=== PATIENT | male | born 1955 | race Caucasian/White ===

== ENCOUNTER 2016-04-22 16:44 | Emergency (ER) | payer BC ==
[2016-04-22 17:50] LABS: Urine Bacteria Absent (Absent)
--- NOTE | 2016-04-22 18:34 | ED ---
Alayna Wilson Rebecca, scribed for Michael Fountain MD on 04/22/16 at 1657 . GI/ HPI - HPI Summary HPI Summary: Pt is a 61 y/o M who presents to ED c/o decreased urinary frequency. Last urinated this morning at 0800 (9 hours ago). Reports that 2 days ago he suddenly began experiencing dysuria and after discussing with his PCP, was prescribed Abx. Pt has taken 3 doses and sx are not improving. Has been drinking as little as possible due to dysuria. Additionally c/o diffuse abd pain and back pain, currently ranked 5/10. Denies rectal pain. No PMHx urinary retention. - History of Current Complaint Chief Complaint: EDUrogenitalProblems Time Seen by Provider: 04/22/16 16:55 Stated Complaint: UNABLE TO URINATE Hx Obtained From: Patient Onset/Duration: Started Days Ago - 2 days ago, Still Present Timing: Constant Severity: Moderate Current Severity: Moderate Pain Intensity: 5 Location of Pain: Diffuse - Abd and back Associated Signs and Symptoms: Positive: Back Pain, Dysuria, Abdominal Pain, Other: - Decreased urinary frequency; denies rectal pain - Allergy/Home Medications Allergies/Adverse Reactions: Allergies Allergy/AdvReac Type Severity Reaction Status Date / Time No Known Allergies Allergy Verified 04/22/16 16:49 PMH/Surg Hx/FS Hx/Imm Hx Endocrine/Hematology History: Denies: Hx Diabetes Cardiovascular History: Denies: Hx Congestive Heart Failure, Hx Hypertension History: Denies: Hx Renal Disease Infectious Disease History: No Infectious Disease History: Denies: Traveled Outside the [place] in Last 30 Days - Family History Known Family History: Positive: Other - Melanoma (mother) - Social History Alcohol Use: Weekly Substance Use Type: Reports: None Hx Tobacco Use: No Review of Systems Positive: Abdominal Pain - diffuse Positive: dysuria - 2 days, frequency - Decreased urinary frequency, other - Denies rectal pain Positive: Arthralgia - Back pain All Other Systems Reviewed And Are Negative: Yes Physical Exam Vital Signs On Initial Exam: Initial Vitals Temp Pulse Resp BP Pulse Ox 98.1 F 74 18 144/83 100 04/22/16 16:49 04/22/16 16:49 04/22/16 16:49 04/22/16 16:49 04/22/16 16:49 Diagnostics - Vital Signs Vital Signs Temp Pulse Resp BP Pulse Ox 04/22/16 16:49 98.1 F 74 18 144/83 100 - Laboratory Lab Results: Lab Results 04/22/16 Range/Units 17:30 Urine Color [place] Urine Appearance Clear Urine pH TNP Ur Specific [place] TNP Urine Protein TNP Urine Ketones TNP Urine Blood TNP Urine Nitrate TNP Urine Bilirubin TNP Urine Urobilinogen TNP Ur Leukocyte Esterase TNP Urine WBC (Auto) Trace(0-5/hpf) (Absent) Urine RBC (Auto) 1+(3-5/hpf) H (Absent) Urine Bacteria Absent (Absent) Urine Glucose TNP Urine Ascorbic Acid TNP Lab Statement: Any lab studies that have been ordered have been reviewed, and results considered in the medical decision making process. GIGU Course/Dx - Course Assessment/Plan: Pt is a 61 y/o M who presents to ED c/o decreased urinary frequency. Last urinated this morning at 0800 (9 hours ago). Reports that 2 days ago he suddenly began experiencing dysuria and after discussing with his PCP, was prescribed Abx. Pt has taken 3 doses and sx are not improving. Has been drinking as little as possible due to dysuria. Additionally c/o diffuse abd pain and back pain, currently ranked 5/10. Denies rectal pain. No PMHx urinary retention. In the ED course a bladder scan was performed. A desir catheter was placed and he expressed approximately 800 cc of urine. All symptoms have improved. He will continue taking Ciprofloxacin and he will be discharged home with f/u of Urology and his PCP. I discussed all the findings and test results with the patient. Patient was instructed to return to the emergency room immediately if any of the symptoms return or worsens. Plan of care was discussed with the patient and understands and agrees. All questions were answered at patient satisfaction. There were no further complaints or concerns. P/E: Lungs: CTA B/L. Good air exchange. No wheezing or crackles heard. CVS: S1 and S2 present. No murmurs appreciated. Patient is alert and oriented x 3. Patient is hemodynamically stable. Patient will be discharged home with follow up PMD in the next 2-3 days - Diagnoses Differential Diagnoses - Male: BPH, Urinary Tract Infection Provider Diagnoses: Urinary retention Discharge - Discharge Plan Condition: Stable Disposition: HOME Prescriptions: Tamsulosin CAP* [Flomax CAP*] 0.4 mg PO DAILY #15 cap Patient Education Materials: Urinary Retention in Men (ED) Referrals: Rob Frederick MD [Primary Care Provider] - 3 Days (Follow up with your primary care physician in 3 days. ) The documentation as recorded by the Alayna ballesteros Rebecca accurately reflects the service I personally performed and the decisions made by , Michael Fountain MD.
[2016-04-22 19:23] VITALS: BP 125/79
== END 2016-04-22 19:21 | disposition home or self-care (01) ==
LOC: ED 16:44
DX: R33.9 Retention of urine, unspecified (principal); R10.9 Unspecified abdominal pain; M54.9 Dorsalgia, unspecified; R30.0 Dysuria
CPT/HCPCS: 81003; 81015; 99283

== ENCOUNTER 2016-04-24 20:27 | Emergency (ER) | payer BC ==
[2016-04-24 21:06] LABS: Hematocrit 43 % (42-52); Hemoglobin 14.2 g/dl (14.0-18.0); Mean Corpuscular HGB Conc 33 g/dl (31-36); Mean Corpuscular Hemoglobin 29 pg (27-31); Mean Corpuscular Volume 88 fL (80-94); Mean Platelet Volume 8 um3 (7.4-10.4); Red Blood Count 4.87 10^6/ul (4.0-5.4); Red Cell Distribution Width 14 % (10.5-15); White Blood Count 7.6 10^3/ul (3.5-10.8)
[2016-04-24 21:20] LABS: Albumin 4.1 g/dL (3.2-5.2); BUN/Creatinine Ratio 12.3 (8-20); Calcium 9.7 mg/dL (8.6-10.3); EGFR African American 124.6 (>60); EGFR Non-African American 96.9 (>60); Globulin 3.4 g/dL (2-4); Potassium 3.3 mmol/L (3.5-5.0); Total Bilirubin 0.5 mg/dL (0.2-1.0); Total Protein 7.5 g/dL (6.4-8.9)
[2016-04-24 21:40] LABS: Urine Bacteria Absent (Absent); Urine Bilirubin Negative (Negative); Urine Glucose Negative (Negative); Urine Nitrite Negative (Negative)
[2016-04-24 22:40] VITALS: BP 127/71
--- NOTE | 2016-04-24 22:51 | ED ---
Alayna Wilson Rebecca, scribed for Rodríguez Lopez MD on 04/24/16 at 2055 . GI/ HPI - HPI Summary HPI Summary: Pt is a 61 y/o M who presents to ED c/o diffuse bodily chills/shivering that suddenly began 1 hour prior to arrival. Sx alleviated by spontaneous resolution , aggravated by nothing. Additionally c/o lumbar back pain, currently ranked 4/ 10 and characterized as dull. Denies fever, vomiting. Pt was evaluated by [facility] ED 2 days ago for urinary retention. Pt had a catheter put in place, which is still present and functioning. Notes that 2x since placement, his desir has leaked. Reports that since the desir was put in place "I feel like I gotta pee but not that bad." Pt discussed sx with PCP 3 days ago who prescribed him Cipro , which he continues to take 2x per day. PMHx prostatitis (decades ago - monitored by PCP). DoeS not regularly see a urologist. Prior record reviewed from 04/22/2016. Labs, urine essentially normal. UA WBCs were trace. - History of Current Complaint Chief Complaint: EDUrogenitalProblems Time Seen by Provider: 04/24/16 20:44 Stated Complaint: LOW BACK PAIN Hx Obtained From: Patient Onset/Duration: Started Hours Ago - 1 hour ago, Resolved Severity: Mild Current Severity: Mild Pain Intensity: 4 - Lumbar back pain Pain Characteristics: Dull Associated Signs and Symptoms: Positive: Chills, Other: - Catheter leaking. Negative: Vomiting, Fever - Allergy/Home Medications Allergies/Adverse Reactions: Allergies Allergy/AdvReac Type Severity Reaction Status Date / Time No Known Allergies Allergy Verified 04/24/16 20:36 PMH/Surg Hx/FS Hx/Imm Hx Endocrine/Hematology History: Denies: Hx Diabetes Cardiovascular History: Denies: Hx Congestive Heart Failure, Hx Hypertension History: Reports: Other Problems/Disorders - Hx Urinary retention Denies: Hx Renal Disease Infectious Disease History: No Infectious Disease History: Denies: Traveled Outside the [place] in Last 30 Days - Family History Known Family History: Positive: Other - Melanoma (mother) - Social History Alcohol Use: Weekly Substance Use Type: Reports: None Hx Tobacco Use: No Review of Systems Positive: Chills - resolved. Negative: Fever Negative: Vomiting Positive: other - Desir leaked 2x All Other Systems Reviewed And Are Negative: Yes Physical Exam - Summary Physical Exam Summary: General: Comfortable, pleasant, alert, currently no chills. HEENT: Moist mucosa, PERRL Neck: soft, supple, no adenopathy, no edema Heart: S1, S2, RRR, no murmurs, rubs, or gallops Lungs: Clear to auscultation, breathing comfortable, no wheezes or rales Abdominal: Soft, flat, no suprapubic tenderness. Urine in the leg bag does not appear cloudy or bloody. Extremities: No edema, no calf tenderness, no CVA tenderness Neuro: Alert and oriented x 3 Psych: Logical, coherent Triage Information Reviewed: Yes Vital Signs On Initial Exam: Initial Vitals Temp Pulse Resp BP Pulse Ox 99.8 F 73 18 147/69 100 04/24/16 20:30 04/24/16 20:30 04/24/16 20:30 04/24/16 20:30 04/24/16 20:30 Vital Signs Reviewed: Yes Procedures - Ultrasound Ultrasound: normal - Bedside SonoSite: Desir and balloon visualized in the bladder. Bladder is not markedly distended and its widest dimension measures 7.3 cm. Diagnostics - Vital Signs Vital Signs Temp Pulse Resp BP Pulse Ox 04/24/16 20:30 99.8 F 73 18 147/69 100 - Laboratory Lab Results: Lab Results 04/24/16 04/24/16 04/24/16 Range/Units 20:55 20:55 20:55 WBC 7.6 (3.5-10.8) 10^3/ul RBC 4.87 (4.0-5.4) 10^6/ul Hgb 14.2 (14.0-18.0) g/dl Hct 43 (42-52) % MCV 88 (80-94) fL MCH 29 (27-31) pg MCHC 33 (31-36) g/dl RDW 14 (10.5-15) % Plt Count 199 (150-450) 10^3/ul MPV 8 (7.4-10.4) um3 Neut % (Auto) 62.3 (38-83) % Lymph % (Auto) 25.3 (25-47) % [place] % (Auto) 9.9 H (1-9) % Eos % (Auto) 1.9 (0-6) % Baso % (Auto) 0.6 (0-2) % Absolute Neuts (auto) 4.7 (1.5-7.7) 10^3/ul Absolute Lymphs (auto) 1.9 (1.0-4.8) 10^3/ul Absolute Monos (auto) 0.8 (0-0.8) 10^3/ul Absolute Eos (auto) 0.1 (0-0.6) 10^3/ul Absolute Basos (auto) 0 (0-0.2) 10^3/ul Absolute Nucleated RBC 0.01 10^3/ul Nucleated RBC % 0.1 INR (Anticoag Therapy) 0.91 (0.89-1.11) APTT 28.6 (26.0-36.3) seconds Sodium 139 (133-145) mmol/L Potassium 3.3 L (3.5-5.0) mmol/L Chloride 104 (101-111) mmol/L Carbon Dioxide 26 (22-32) mmol/L Anion Gap 9 (2-11) mmol/L BUN 10 (6-24) mg/dL Creatinine 0.81 (0.67-1.17) mg/dL Est GFR ( Amer) 124.6 (>60) Est GFR (Non-Af Amer) 96.9 (>60) BUN/Creatinine Ratio 12.3 (8-20) Glucose 95 (70-100) mg/dL Calcium 9.7 (8.6-10.3) mg/dL Total Bilirubin 0.50 (0.2-1.0) mg/dL AST 25 (13-39) U/L ALT 29 (7-52) U/L Alkaline Phosphatase 36 (34-104) U/L Total Protein 7.5 (6.4-8.9) g/dL Albumin 4.1 (3.2-5.2) g/dL Globulin 3.4 (2-4) g/dL Albumin/Globulin Ratio 1.2 (1-3) Urine Color Urine Appearance Urine pH (5-9) Ur Specific [place] (1.010-1.030) Urine Protein (Negative) Urine Ketones (Negative) Urine Blood (Negative) Urine Nitrate (Negative) Urine Bilirubin (Negative) Urine Urobilinogen (Negative) Ur Leukocyte Esterase (Negative) Urine WBC (Auto) (Absent) Urine RBC (Auto) (Absent) Ur Squamous Epith Cells (Absent) Urine Bacteria (Absent) Urine Glucose (Negative) 04/24/16 Range/Units 21:00 WBC (3.5-10.8) 10^3/ul RBC (4.0-5.4) 10^6/ul Hgb (14.0-18.0) g/dl Hct (42-52) % MCV (80-94) fL MCH (27-31) pg MCHC (31-36) g/dl RDW (10.5-15) % Plt Count (150-450) 10^3/ul MPV (7.4-10.4) um3 Neut % (Auto) (38-83) % Lymph % (Auto) (25-47) % [place] % (Auto) (1-9) % Eos % (Auto) (0-6) % Baso % (Auto) (0-2) % Absolute Neuts (auto) (1.5-7.7) 10^3/ul Absolute Lymphs (auto) (1.0-4.8) 10^3/ul Absolute Monos (auto) (0-0.8) 10^3/ul Absolute Eos (auto) (0-0.6) 10^3/ul Absolute Basos (auto) (0-0.2) 10^3/ul Absolute Nucleated RBC 10^3/ul Nucleated RBC % INR (Anticoag Therapy) (0.89-1.11) APTT (26.0-36.3) seconds Sodium (133-145) mmol/L Potassium (3.5-5.0) mmol/L Chloride (101-111) mmol/L Carbon Dioxide (22-32) mmol/L Anion Gap (2-11) mmol/L BUN (6-24) mg/dL Creatinine (0.67-1.17) mg/dL Est GFR ( Amer) (>60) Est GFR (Non-Af Amer) (>60) BUN/Creatinine Ratio (8-20) Glucose (70-100) mg/dL Calcium (8.6-10.3) mg/dL Total Bilirubin (0.2-1.0) mg/dL AST (13-39) U/L ALT (7-52) U/L Alkaline Phosphatase (34-104) U/L Total Protein (6.4-8.9) g/dL Albumin (3.2-5.2) g/dL Globulin (2-4) g/dL Albumin/Globulin Ratio (1-3) Urine Color [place] Urine Appearance Cloudy Urine pH 6.0 (5-9) Ur Specific [place] 1.018 (1.010-1.030) Urine Protein 1+(30 mg/dl) H (Negative) Urine Ketones Negative (Negative) Urine Blood 3+ H (Negative) Urine Nitrate Negative (Negative) Urine Bilirubin Negative (Negative) Urine Urobilinogen Negative (Negative) Ur Leukocyte Esterase Negative (Negative) Urine WBC (Auto) 1+(6-10/hpf) H (Absent) Urine RBC (Auto) 3+(>10/hpf) H (Absent) Ur Squamous Epith Cells Present H (Absent) Urine Bacteria Absent (Absent) Urine Glucose Negative (Negative) Result Diagrams: 04/24/16 20:55 04/24/16 20:55 Lab Statement: Any lab studies that have been ordered have been reviewed, and results considered in the medical decision making process. GIGU Course/Dx - Course Assessment/Plan: He had chills, but no fever here. No tachycardia and no elevated WBC. No real objective evidence to support sepsis. He is going to continue to take Cipro. His UA showed slightly increased WBCs. After changing his desir, he seems to have improved. He was c/o leakage around the desir, which was odd. Immediately upon placing new desir he had 300 cc of urine out. Otherwise continue as planned to follow up with urology and should return should there be any fever or shaking chills. - Diagnoses Differential Diagnoses - Male: Hemorrhoids Provider Diagnoses: Chills (without fever), Complication, blocked Desir catheter Discharge - Discharge Plan Condition: Good Disposition: HOME Patient Education Materials: Urinary Retention in Men (ED) Referrals: Rob Frederick MD [Primary Care Provider] - Additional Instructions: Follow up with urology as already planned. The documentation as recorded by the Alayna ballesteros Rebecca accurately reflects the service I personally performed and the decisions made by , Rodríguez Lopez MD.
== END 2016-04-24 22:40 | disposition home or self-care (01) ==
LOC: ED 20:27
DX: T83.098A Other mechanical complication of other urinary catheter, initial encounter (principal); Y84.6 Urinary catheterization as the cause of abnormal reaction of the patient, or of later complication, without mention of misadventure at the time of the procedure; Y92.9 Unspecified place or not applicable; R68.83 Chills (without fever); R33.9 Retention of urine, unspecified
CPT/HCPCS: 36415; 80053; 81003; 81015; 85025; 85610; 85730; 87040; 99282

== ENCOUNTER 2016-04-25 20:06 | Inpatient (IN) | payer BC ==
[2016-04-25 22:08] LABS: Urine Bacteria Absent (Absent); Urine Bilirubin Negative (Negative); Urine Glucose Negative (Negative); Urine Nitrite Positive (Negative)
[2016-04-25] MEDS ORDERED: cefTRIAXone(*) 2 GM in NS 0.9% 100 ML* 100 ML IVPB ONE (22:19)
[2016-04-25] MEDS ORDERED: NS 0.9% 1000 ML* 1,000 ML IV ONE (22:20)
--- NOTE | 2016-04-25 22:23 | HP ---
H&P (Free Text) History and Physical: PCP: Sunny Frederick MD Date/Time of Evaluation: 04/25/2016 7245 CC: confusion, syncope HPI: Mr Nunez is a 61YO male HX BPH who began developing stinging with urination last Saturday prompting him to call his PCP who prescribed ciprofloxacin as he has a HX of prostatitis. The stinging worsened Saturday and developed into urinary retention on Saturday prompting an evaluation in [facility] ED where a desir was placed, follow up outpatient with urology arranged, and tamsulosin prescribed. After his first dose of tamsulosin Saturday, he was on the toilet defecating when without pro- or post-dromal symtoms he syncopized and was advised by his PCP to D/C the tamsulosin. Saturday he had issues urinating around the catheter and had developed F/C and rigors for which he returned to [facility] ED and was evaluated and released. Today his daughter noticed he was not making sense and his became concerned about sepsis prompting this 3rd ED visit. Given progressive infectious symptoms and a worsening UA despite adequate ABX, will admit for failed outpatient management and monitoring or UTI. 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 ; engineer design and construction, lives with his ; full code status FamHx: sister: passed of ovarian CA, father: basal cell skin CA, mother: melanoma ROS: as above, otherwise reviewed and all were negative Constitutional: NAD, normally developed, well-nourished white male vitals: Vital Signs Temp 36.9 C 04/25/16 20:09 Pulse 91 04/25/16 20:09 Resp 22 04/25/16 20:09 BP 137/66 04/25/16 20:09 Pulse Ox 100 04/25/16 20:09 Intake & Output 04/24/16 04/25/16 04/25/16 23:59 11:59 23:59 Weight 175 lb HEENM: atraumatic; sclera/conjunctiva: non-icteric/clear; hearing: intact; oropharynx: clear, mucosa moist Neck: soft tissue: non-tender; thyroid: normal Pulmonary: clear to auscultation bilaterally, good aeration, no accessory muscle use CV: RR/RR, normal S1S2, no carotid bruit, no jugular venous distention, 2+ B DP/ PT, no edema Abdominal: soft, non-distended, non-tender, no rebound/guarding/rigidity, normoactive bowel sounds, no hepatosplenomegaly or masses, no costovertebral angle tenderness Musculoskeletal: general: grossly intact; gait: stable Integumental: normal appearance and texture Psychiatric orientation: AA&O to PPS affect: calm mood: cooperative eye contact: good content: mostly reliable, but has difficulty with details and order of events memory: foggy to recent events responses: timely insight: fair to good Testing: Lab Results 04/25/16 04/25/16 Range/Units 20:45 22:20 WBC 6.4 (3.5-10.8) 10^3/ul RBC 4.98 (4.0-5.4) 10^6/ul Hgb 14.5 (14.0-18.0) g/dl Hct 43 (42-52) % MCV 86 (80-94) fL MCH 29 (27-31) pg MCHC 34 (31-36) g/dl RDW 13 (10.5-15) % Plt Count 172 (150-450) 10^3/ul MPV 8 (7.4-10.4) um3 Neut % (Auto) 78.0 (38-83) % Lymph % (Auto) 9.4 L (25-47) % [place] % (Auto) 11.5 H (1-9) % Eos % (Auto) 0.4 (0-6) % Baso % (Auto) 0.7 (0-2) % Absolute Neuts (auto) 5.0 (1.5-7.7) 10^3/ul Absolute Lymphs (auto) 0.6 L (1.0-4.8) 10^3/ul Absolute Monos (auto) 0.7 (0-0.8) 10^3/ul Absolute Eos (auto) 0 (0-0.6) 10^3/ul Absolute Basos (auto) 0 (0-0.2) 10^3/ul Absolute Nucleated RBC 0 10^3/ul Nucleated RBC % 0 Urine Color [place] Urine Appearance Clear Urine pH 6.0 (5-9) Ur Specific [place] 1.020 (1.010-1.030) Urine Protein 2+(100 mg/dl) H (Negative) Urine Ketones Trace H (Negative) Urine Blood 3+ H (Negative) Urine Nitrate Positive H (Negative) Urine Bilirubin Negative (Negative) Urine Urobilinogen Positive H (Negative) Ur Leukocyte Esterase Negative (Negative) Urine WBC (Auto) 3+(>20/hpf) H (Absent) Urine RBC (Auto) 3+(>10/hpf) H (Absent) Urine Bacteria Absent (Absent) Urine Glucose Negative (Negative) CT abd/pel WO: haziness around urinary bladder ?cystitis, no urinary stone or obstruction Impression: 61M presenting with UTI failed oupatient management complicated by urinary retention DIAGNOSIS & PLAN Primary UTI w/ urinary retention & confusion : IV ceftriaxone : add terazosin PO HS : obtain CT abd/pel WO to r/o obstructing stone : IVFs : blood & urine CXs : supportive care syncope : uncertain etiology, suspect vaso-vagal : telemetry : check ECHO Admission Rational: CDU observation for initiation of IV ABX for catheter associated UTI w/ confusion & syncope DVTp: SCDs & heparin SQ Code Status: full HCP: , Nancy
[2016-04-25 22:48] LABS: Hematocrit 43 % (42-52); Hemoglobin 14.5 g/dl (14.0-18.0); Mean Corpuscular HGB Conc 34 g/dl (31-36); Mean Corpuscular Hemoglobin 29 pg (27-31); Mean Corpuscular Volume 86 fL (80-94); Mean Platelet Volume 8 um3 (7.4-10.4); Red Blood Count 4.98 10^6/ul (4.0-5.4); Red Cell Distribution Width 13 % (10.5-15); White Blood Count 6.4 10^3/ul (3.5-10.8)
[2016-04-25] MEDS ORDERED: traMADol TAB* 50 MG PO PRN (22:58)
[2016-04-25] MEDS ORDERED: Melatonin (NF) 3 MG TAB PO PRN (22:58)
[2016-04-25] MEDS ORDERED: Terazosin CAP* 5 MG PO SCH (23:00)
[2016-04-25 23:01] LABS: BUN/Creatinine Ratio 10.4 (8-20); Calcium 9.6 mg/dL (8.6-10.3); EGFR African American 102.4 (>60); EGFR Non-African American 79.6 (>60); Potassium 3.2 mmol/L (3.5-5.0)
[2016-04-25] MEDS: Acetaminophen TAB* 325 MG PO PRN (23:49)
[2016-04-26] MEDS: NS 0.9% 1000 ML* 1,000 ML IV SCH ×4 (01:15→17:16)
[2016-04-26] MEDS: Phenazopyridine TAB* 100 MG PO SCH ×4 (01:15→20:32)
[2016-04-26] MEDS: Omeprazole CAP* 20 MG PO SCH (05:28)
[2016-04-26] MEDS: Acetaminophen TAB* 325 MG PO PRN ×3 (05:29→22:31)
[2016-04-26 05:30] LABS: Hematocrit 39 % (42-52); Hemoglobin 12.8 g/dl (14.0-18.0); Mean Corpuscular HGB Conc 33 g/dl (31-36); Mean Corpuscular Hemoglobin 29 pg (27-31); Mean Corpuscular Volume 88 fL (80-94); Mean Platelet Volume 8 um3 (7.4-10.4); Red Blood Count 4.41 10^6/ul (4.0-5.4); Red Cell Distribution Width 13 % (10.5-15); White Blood Count 4.7 10^3/ul (3.5-10.8)
[2016-04-26 05:47] LABS: BUN/Creatinine Ratio 10.9 (8-20); Calcium 8.4 mg/dL (8.6-10.3); EGFR African American 96.6 (>60); EGFR Non-African American 75.1 (>60); Potassium 3.5 mmol/L (3.5-5.0)
--- NOTE | 2016-04-26 07:44 | RAD ---
INDICATION: Flank abdominal pain. COMPARISON: Comparison is made with a prior CT of the abdomen and pelvis from February 03, 2013. TECHNIQUE: A CT scan of the abdomen and pelvis was performed without intravenous or oral contrast. Contiguous axial sections were obtained from the lung bases through the symphysis pubis. Images were reconstructed in the coronal and sagittal planes. FINDINGS: There is mild dependent bilateral lower lobe subsegmental atelectasis. No pleural effusion is present. The liver and spleen are normal in size. There are 2 small hypodense lesions in the posterior segment of the right hepatic lobe. The larger measures 1.7 cm in size. These likely represent cysts. No calcified gallstones are seen. The pancreas appears to be within normal limits. The adrenal glands and kidneys are normal in size. No renal calculi or hydronephrosis is seen. There is a Mcclellan catheter within the urinary bladder. There is mild stranding and haziness around the urinary bladder in the adjacent fat suggesting the possibility of cystitis. The aorta is normal in caliber without significant calcific plaque. No significant enlarged retroperitoneal lymph nodes are seen. The stomach, small and large bowel appear nondistended. The appendix is not well visualized. There is a moderate to large amount retained stool. There is no evidence for diverticulitis or colitis. No free intraperitoneal air or fluid is seen. No significant focal osseous abnormality is seen. IMPRESSION: THERE IS MILD HAZINESS AND STRANDING AROUND THE URINARY BLADDER SUGGESTING THE POSSIBILITY OF CYSTITIS. RECOMMEND CLINICAL CORRELATION.
[2016-04-26] MEDS: Docusate CAP* 100 MG PO SCH ×2 (09:20→20:32)
[2016-04-26] MEDS ORDERED: Acetaminophen TAB* 325 MG PO ONE (09:41)
[2016-04-26] MEDS ORDERED: Acetaminophen TAB* 325 MG ONE (09:42)
[2016-04-26] MEDS ORDERED: Gentamicin ADULT (*) 40 MG/ML VIAL IVPB ONE (14:20)
[2016-04-26] MEDS ORDERED: Ibuprofen TAB* 600 MG PO ONE (15:30)
[2016-04-26] MEDS ORDERED: Gentamicin ADULT (*) 200 MG in NS 0.9% 100 ML* 100 ML IVPB ONE (16:00)
--- NOTE | 2016-04-26 16:19 | ECHO ---
Patient: EUGENIO STALLWORTH [facility] Rec#: [id number] : 1955 Date: 04/26/2016 Age: 61y Height: 180 cm / 70.9 in Weight: 79 kg / 174.1 lbs Sex: M BSA: 1.99 Room#: [facility] Admit Date#: 04/25/2016 Type: Inpatient Referring: Sage Leach MD Reading: Chet Denton MD Chief Vendor Quality: Agusto Nunez RDCS CC: Rob Frederick MD Transthoracic Echocardiogram Indication: SYNCOPE BP: 99/49 Rhythm: NSR Findings History: SYNCOPE Technical Comments: The study quality is good. Left Ventricle: The left ventricular chamber size is normal. Global left ventricular wall motion and contractility are within normal limits. There is normal left ventricular systolic function. The estimated ejection fraction is 60-65%. The left ventricular diastolic filling pattern is consistent with pseudonormalization. Left Atrium: The left atrial chamber size is normal. Right Ventricle: The right ventricular cavity size is normal. The right ventricular global systolic function is normal. Right Atrium: The right atrial cavity size is normal. Aortic Valve: The aortic valve is trileaflet. There is no evidence of aortic regurgitation. There is no evidence of aortic stenosis. Mitral Valve: The mitral valve leaflets appear normal. There is a trace of mitral regurgitation. There is no evidence of mitral stenosis. Tricuspid Valve: There is mild to moderate tricuspid regurgitation. The right ventricular systolic pressure is estimated at 40 mmHg. There is evidence of pulmonary hypertension. Pulmonic Valve: The pulmonic valve appears normal. There is no evidence of pulmonic regurgitation. There is no pulmonic stenosis. Pericardium: There is no pericardial effusion. Aorta: There is no dilatation of the ascending aorta. The aortic arch is not well visualized. There is no dilation of the aortic root. Pulmonary Artery: The main pulmonary artery is not well visualized. Venous: The inferior vena cava is dilated. There is a greater than 50% respiratory change in the inferior vena cava dimension. Summary: There was not any prior study for comparison. Conclusions The left ventricular chamber size is normal. There is normal left ventricular systolic function. The estimated ejection fraction is 60-65%. There is a trace of mitral regurgitation. There is mild to moderate tricuspid regurgitation. Measurements Name Value Normal Range RVIDd (AP) 2D 2.6 cm (0.9 - 2.6) RVDdMajor (2D) 3.3 cm (2.2 - 4.4) RAd ISD 4CH 3.7 cm (3.4 - 4.9) RA (A4C)W 4.9 cm (2.9 - 4.6) IVSd (2D) 0.8 cm (0.6 - 1) LVPWd (2D) 0.8 cm (0.6 - 1) LVIDd (2D) 5.1 cm (3.6 - 5.4) LVIDs (2D) 3.5 cm - LV FS (2D) 32 % (25 - 45) Aortic Annulus 3.1 cm (1.4 - 2.6) Ao root diameter (2D) 1.9 cm (2.1 - 3.5) Ascending Ao 3.1 cm (2.1 - 3.4) LA dimension (AP) 2D 3.1 cm (2.3 - 3.8) LAd ISD 4CH 4.4 cm (2.9 - 5.3) LA ISD 4CH W 5.3 cm (2.5 - 4.5) Name Value Normal Range LA ESV SP 4CH (A/L) 75 ml - LA ESV SP 2CH (A/L) 54 ml - LA ESV BP (A/L) 68 ml - LA ESV BP (A/L) index 34.17 ml/m2 - LA ESV SP 4CH (MOD) 65 ml - LA ESV SP 2CH (MOD) 52 ml - Name Value Normal Range MV E-wave Vmax 0.94 m/sec - MV deceleration time 174 msec - MV A-wave Vmax 0.59 m/sec - MV E:A ratio 157 ratio - LV septal e' Vmax 0.11 m/sec - LV lateral e' Vmax 0.1 m/sec - LV E:e' septal ratio 8.5 ratio - LV E:e' lateral ratio 9.4 ratio - Name Value Normal Range LVOT diameter 1.8 cm - LVOT Vmax 1.3 m/sec - Name Value Normal Range TR Vmax 3 m/sec - TR peak gradient 37 mmHg - RAP 3 mmHg - RVSP 40 mmHg - IVC diameter 2.4 cm - Name Value Normal Range PV Vmax 1.1 m/sec -
--- NOTE | 2016-04-26 17:09 | PN ---
Subjective Date of Service: 04/26/16 Interval History: Desir in place. Drains only if he is lying on his left. Denies any SOB, cough, CP, N/V, GI symptoms. Objective Active Medications: Acetaminophen (Tylenol Tab*) 650 mg PO Q6H PRN PRN Reason: FEVER/PAIN Last Admin: 04/26/16 14:01 Dose: 650 mg Docusate Sodium (Colace Cap*) 200 mg PO BID [facility] Last Admin: 04/26/16 09:20 Dose: 200 mg Ceftriaxone Sodium 1,000 mg/ (Sodium Chloride) 50 mls @ 200 mls/hr IVPB Q24H [facility] Sodium Chloride (Ns 0.9% 1000 Ml*) 1,000 mls @ 175 mls/hr IV PER RATE [facility] Stop: 04/27/16 19:58 Last Admin: 04/26/16 14:42 Dose: 175 mls/hr Melatonin (Melatonin (Nf)) 3 mg PO BEDTIME PRN; Protocol PRN Reason: Sleep Omeprazole (Prilosec Cap*) 20 mg PO DAILY@0600 [facility] Last Admin: 04/26/16 05:28 Dose: 20 mg Ondansetron HCl (Zofran Inj*) 4 mg IV Q6H PRN PRN Reason: NAUSEA Phenazopyridine HCl (Pyridium Tab*) 200 mg PO TID [facility] Last Admin: 04/26/16 13:44 Dose: 200 mg Tramadol HCl (Ultram*) 50 mg PO Q6H PRN PRN Reason: PAIN Last Admin: 04/26/16 05:28 Dose: 50 mg Vital Signs 04/25/16 04/26/16 04/26/16 23:30 01:13 01:39 Temperature 102.3 F 99.3 F 99.3 F Pulse Rate 74 73 73 Respiratory 18 16 16 Rate Blood Pressure 118/61 122/65 122/65 (mmHg) O2 Sat by Pulse 97 99 99 Oximetry 04/26/16 04/26/16 04/26/16 04:03 05:28 07:25 Temperature 100.1 F 100.8 F Pulse Rate 90 91 Respiratory 16 16 18 Rate Blood Pressure 102/55 99/49 (mmHg) O2 Sat by Pulse 97 94 Oximetry 04/26/16 04/26/16 04/26/16 07:28 08:00 09:48 Temperature 102.0 F Pulse Rate 80 Respiratory 16 Rate Blood Pressure 106/62 (mmHg) O2 Sat by Pulse Oximetry 04/26/16 04/26/16 04/26/16 09:50 11:11 11:12 Temperature 102.2 F 101.5 F 102.4 F Pulse Rate 73 Respiratory 18 Rate Blood Pressure 102/40 (mmHg) O2 Sat by Pulse 94 Oximetry 04/26/16 04/26/16 04/26/16 11:22 13:55 14:05 Temperature 103.9 F 103.9 F Pulse Rate 73 Respiratory 18 Rate Blood Pressure 95/56 (mmHg) O2 Sat by Pulse 93 Oximetry 04/26/16 15:10 Temperature 103.3 F Pulse Rate Respiratory Rate Blood Pressure (mmHg) O2 Sat by Pulse Oximetry Oxygen Devices in Use Now: None Appearance: NAD Eyes: No Scleral Icterus, PERRLA Ears/Nose/Mouth/Throat: NL Teeth, Lips, Gums, Clear Oropharnyx, Mucous Membranes Moist Neck: NL Appearance and Movements; NL JVP, Trachea Midline Respiratory: Symmetrical Chest Expansion and Respiratory Effort, Clear to Auscultation Cardiovascular: NL Sounds; No Murmurs; No JVD, RRR Abdominal: NL Sounds; No Tenderness; No Distention, No Hepatosplenomegaly, - - desir in place with scant mucous draining from aroun glans Extremities: No Edema Skin: No Rash or Ulcers Neurological: Alert and Oriented x 3 Result Diagrams: 04/26/16 04:58 04/26/16 04:58 Additional Lab and Data: Lab Results 04/25/16 04/25/16 04/25/16 Range/Units 20:45 22:20 22:20 WBC 6.4 (3.5-10.8) 10^3/ul RBC 4.98 (4.0-5.4) 10^6/ul Hgb 14.5 (14.0-18.0) g/dl Hct 43 (42-52) % MCV 86 (80-94) fL MCH 29 (27-31) pg MCHC 34 (31-36) g/dl RDW 13 (10.5-15) % Plt Count 172 (150-450) 10^3/ul MPV 8 (7.4-10.4) um3 Neut % (Auto) 78.0 (38-83) % Lymph % (Auto) 9.4 L (25-47) % [place] % (Auto) 11.5 H (1-9) % Eos % (Auto) 0.4 (0-6) % Baso % (Auto) 0.7 (0-2) % Absolute Neuts (auto) 5.0 (1.5-7.7) 10^3/ul Absolute Lymphs (auto) 0.6 L (1.0-4.8) 10^3/ul Absolute Monos (auto) 0.7 (0-0.8) 10^3/ul Absolute Eos (auto) 0 (0-0.6) 10^3/ul Absolute Basos (auto) 0 (0-0.2) 10^3/ul Absolute Nucleated RBC 0 10^3/ul Nucleated RBC % 0 Sodium 135 (133-145) mmol/L Potassium 3.2 L (3.5-5.0) mmol/L Chloride 100 L (101-111) mmol/L Carbon Dioxide 28 (22-32) mmol/L Anion Gap 7 (2-11) mmol/L BUN 10 (6-24) mg/dL Creatinine 0.96 (0.67-1.17) mg/dL Est GFR ( Amer) 102.4 (>60) Est GFR (Non-Af Amer) 79.6 (>60) BUN/Creatinine Ratio 10.4 (8-20) Glucose 99 (70-100) mg/dL Lactic Acid (0.5-2.0) mmol/L Calcium 9.6 (8.6-10.3) mg/dL Urine Color Mariah Urine Appearance Clear Urine pH 6.0 (5-9) Ur Specific [place] 1.020 (1.010-1.030) Urine Protein 2+(100 mg/dl) H (Negative) Urine Ketones Trace H (Negative) Urine Blood 3+ H (Negative) Urine Nitrate Positive H (Negative) Urine Bilirubin Negative (Negative) Urine Urobilinogen Positive H (Negative) Ur Leukocyte Esterase Negative (Negative) Urine WBC (Auto) 3+(>20/hpf) H (Absent) Urine RBC (Auto) 3+(>10/hpf) H (Absent) Urine Bacteria Absent (Absent) Urine Glucose Negative (Negative) 04/25/16 Range/Units 22:20 WBC (3.5-10.8) 10^3/ul RBC (4.0-5.4) 10^6/ul Hgb (14.0-18.0) g/dl Hct (42-52) % MCV (80-94) fL MCH (27-31) pg MCHC (31-36) g/dl RDW (10.5-15) % Plt Count (150-450) 10^3/ul MPV (7.4-10.4) um3 Neut % (Auto) (38-83) % Lymph % (Auto) (25-47) % [place] % (Auto) (1-9) % Eos % (Auto) (0-6) % Baso % (Auto) (0-2) % Absolute Neuts (auto) (1.5-7.7) 10^3/ul Absolute Lymphs (auto) (1.0-4.8) 10^3/ul Absolute Monos (auto) (0-0.8) 10^3/ul Absolute Eos (auto) (0-0.6) 10^3/ul Absolute Basos (auto) (0-0.2) 10^3/ul Absolute Nucleated RBC 10^3/ul Nucleated RBC % Sodium (133-145) mmol/L Potassium (3.5-5.0) mmol/L Chloride (101-111) mmol/L Carbon Dioxide (22-32) mmol/L Anion Gap (2-11) mmol/L BUN (6-24) mg/dL Creatinine (0.67-1.17) mg/dL Est GFR ( Amer) (>60) Est GFR (Non-Af Amer) (>60) BUN/Creatinine Ratio (8-20) Glucose (70-100) mg/dL Lactic Acid 1.3 (0.5-2.0) mmol/L Calcium (8.6-10.3) mg/dL Urine Color Urine Appearance Urine pH (5-9) Ur Specific [place] (1.010-1.030) Urine Protein (Negative) Urine Ketones (Negative) Urine Blood (Negative) Urine Nitrate (Negative) Urine Bilirubin (Negative) Urine Urobilinogen (Negative) Ur Leukocyte Esterase (Negative) Urine WBC (Auto) (Absent) Urine RBC (Auto) (Absent) Urine Bacteria (Absent) Urine Glucose (Negative) Assess/Plan/Problems-Billing Assessment: 61 yo M h/o past syncopal events who developed dysurea later complicated by urinary retention s/p desir insertion then drainage from around desir with desir replacement (and upsizing per patient) now presenting to [facility] [place] with syncope found with high fevers. - Patient Problems (1) Sepsis Comment: Sepsis with urine as suspected source has h/o prostatitis. May need longer duration of abx therapy on discharge. c/w CTX. Bolus gentamycin now. Decison whether to continue tomorrow depending on fever curve as well as culture results. c/w NS 175cc/hr x 2 additional liters. (2) Hyperpyrexia Comment: Tmax 103.9 rectal Improved with application of icebags to body, tylenol, and 1 x dose motrin In setting of sepsis abx as above (3) DVT prophylaxis Comment: enoxaparin
[2016-04-26] MEDS: Enoxaparin(*) 40 MG/0.4 ML SYR SUBCUT SCH (17:55)
--- NOTE | 2016-04-26 20:11 | CONS ---
UROLOGY CONSULTATION: DATE OF CONSULT: 04/26/16 REQUESTING PHYSICIAN: Dr. Oni Edwards. DIAGNOSES: 1. Prostatitis. 2. History of urinary retention. HISTORY OF PRESENT ILLNESS: Bismark Nunez is a 61-year-old gentleman with a longstanding history of prostate enlargement, who was admitted with fever and urinary retention. He has had difficulty urinating off and on for several years and had been on Flomax at one point, but had discontinued it secondary to retrograde ejaculation. He often has to sit down to urinate, and had called his primary care doctor, Dr. Frederick, last week with complaints of dysuria. He was started on Cipro 500 mg which he took for 5 days. In spite of starting the Cipro, he had progressively worsening urinary symptoms and had a Mcclellan catheter placed in the emergency room on April 22. He has since then made several trips to the emergency room because of issues regarding drainage through the Mcclellan catheter and possible bladder spasms. The Mcclellan catheter was then replaced for a bigger Mcclellan catheter at the next trip and around that time, he was noted not to be draining his bladder adequately and it is possible that the first Mcclellan catheter was partially obstructed. PAST MEDICAL HISTORY: Unremarkable other than the above-described prostate enlargement. He is in excellent health. There is no history of diabetes mellitus or any other major systemic illness. MEDICATIONS ON ADMISSION: None. ALLERGIES: No known drug allergies. PHYSICAL EXAM: Reveals a pleasant middle-aged gentleman, who is currently comfortable. He did spike a temperature earlier today with a T-max of 103.9, pulse of 73, and blood pressure of 95/56. On examination, abdomen is soft, the bladder does not appear distended. There is no flank tenderness. Testicles are descended bilaterally and are normal. Phallus is circumcised. A Mcclellan catheter is in place draining clear urine tinged with phenazopyridine (Pyridium) . There is some drainage noted at the meatus which I suspect is from the urethral gland. DIAGNOSTIC STUDIES/LAB DATA: Review of labs reveals a white count of 4.7, hemoglobin and hematocrit of 12.8 and 39, and a platelet count of 156. BUN and creatinine are 11 and 1.01 respectively. Urinalysis showed a pH of 6.0, 2+ protein, 3+ blood, 3+ white blood cells, but absent bacteria. Cultures are currently pending. I reviewed the CT scan which reveals normal-appearing kidneys with no evidence of hydronephrosis. The Mcclellan catheter is in place in the bladder with some mild inflammatory changes noted around the bladder. IMPRESSION: A 61-year-old gentleman with long-standing history of prostate enlargement and currently admitted with prostatitis, possible sepsis. I did not do a prostate exam at the present time because of concern of inciting bacteremia and will do that as an outpatient in my office. I recommended that he be started on intravenous gentamicin until we have further information on culture and sensitivity and we will also start him on alfuzosin 10 mg daily to try and improve his bladder emptying once the Mcclellan catheter is removed, which I would not do for at least a week. I will reevaluate him in the morning and will then follow him up as an outpatient. CC: Dr. Rob Frederick; Dr. Tidwell * [id number]/CPS #: [id number] MTDD
[2016-04-26] MEDS: cefTRIAXone VIAL(*) 1,000 MG in NS 0.9% 50 ML* 50 ML IVPB SCH (22:46)
[2016-04-26] MEDS: Ibuprofen TAB* 600 MG PO PRN (23:48)
[2016-04-27] MEDS: Ibuprofen TAB* 600 MG PO PRN ×3 (05:42→19:59)
[2016-04-27] MEDS: Omeprazole CAP* 20 MG PO SCH (05:42)
[2016-04-27] MEDS ORDERED: Gentamicin ADULT per pharmacy 1 NOTE MISC FOLLOW UP PRN (08:10)
[2016-04-27] MEDS: Phenazopyridine TAB* 100 MG PO SCH ×3 (08:30→19:59)
[2016-04-27] MEDS: Docusate CAP* 100 MG PO SCH ×2 (08:30→19:59)
[2016-04-27] MEDS: CMCS: Alfuzosin ER (NF) 10 MG TAB.ER PO SCH (08:30)
[2016-04-27] MEDS: Acetaminophen TAB* 325 MG PO PRN ×3 (08:31→22:24)
[2016-04-27] MEDS: Gentamicin ADULT (*) 120 MG in NS 0.9% 100 ML* 100 ML IVPB SCH ×2 (09:45→20:41)
[2016-04-27] MEDS: Enoxaparin(*) 40 MG/0.4 ML SYR SUBCUT SCH (16:56)
--- NOTE | 2016-04-27 19:00 | PN ---
Subjective Date of Service: 04/27/16 Interval History: Still has discomfort around desir Has mild LOOMIS Has no N/V, abdominal pain. Notes back pain which is b/l lower back similar to chronic LBP No neck pain or stiffness Objective Active Medications: Acetaminophen (Tylenol Tab*) 650 mg PO Q6H PRN PRN Reason: FEVER/PAIN Last Admin: 04/27/16 15:06 Dose: 650 mg Alfuzosin HCl (Uroxatral (Nf)) 10 mg PO DAILY [facility] Last Admin: 04/27/16 08:30 Dose: 10 mg Docusate Sodium (Colace Cap*) 200 mg PO BID [facility] Last Admin: 04/27/16 08:30 Dose: 200 mg Enoxaparin Sodium (Lovenox(*)) 40 mg SUBCUT Q24H [facility] Last Admin: 04/27/16 16:56 Dose: 40 mg Ceftriaxone Sodium 1,000 mg/ (Sodium Chloride) 50 mls @ 200 mls/hr IVPB Q24H [facility] Last Admin: 04/26/16 22:46 Dose: 200 mls/hr Sodium Chloride (Ns 0.9% 1000 Ml*) 1,000 mls @ 175 mls/hr IV PER RATE [facility] Stop: 04/27/16 19:58 Last Admin: 04/26/16 17:16 Dose: 175 mls/hr Gentamicin Sulfate 120 mg/ (Sodium Chloride) 103 mls @ 206 mls/hr IVPB Q12H [facility] Last Admin: 04/27/16 09:45 Dose: 206 mls/hr Lactated Ringer's (Lactated Ringers 1000 Ml Bag*) 1,000 mls @ 200 mls/hr IV PER RATE [facility] Last Admin: 04/27/16 16:44 Dose: 200 mls/hr Ibuprofen (Motrin Tab*) 600 mg PO Q6H PRN PRN Reason: FEVER/PAIN Last Admin: 04/27/16 13:24 Dose: 600 mg Melatonin (Melatonin (Nf)) 3 mg PO BEDTIME PRN; Protocol PRN Reason: Sleep Omeprazole (Prilosec Cap*) 20 mg PO DAILY@0600 [facility] Last Admin: 04/27/16 05:42 Dose: 20 mg Ondansetron HCl (Zofran Inj*) 4 mg IV Q6H PRN PRN Reason: NAUSEA Pharmacy Consult (Gentamicin Adult Per Pharmacy) 1 note FOLLOW UP .GENT PER PHARMACY PRN PRN Reason: PER PROTOCOL Stop: 05/11/16 08:11 Pharmacy Profile Note (Gentamicin Trough Level) 1 note FOLLOW UP 0830 ONE Stop: 04/28/16 08:31 Pharmacy Profile Note (Gentamicin Peak Level*) 1 note FOLLOW UP 1000 ONE Stop: 04/28/16 10:01 Phenazopyridine HCl (Pyridium Tab*) 200 mg PO TID [facility] Last Admin: 04/27/16 13:25 Dose: 200 mg Tramadol HCl (Ultram*) 50 mg PO Q6H PRN PRN Reason: PAIN Last Admin: 04/26/16 05:28 Dose: 50 mg Vital Signs 04/26/16 04/26/16 04/26/16 19:10 19:46 22:25 Temperature 99.8 F 98.0 F 104.2 F Pulse Rate 74 Respiratory 17 Rate Blood Pressure 91/56 (mmHg) O2 Sat by Pulse 95 Oximetry 04/26/16 04/26/16 04/27/16 23:28 23:36 00:18 Temperature 104.0 F 103.7 F Pulse Rate 84 Respiratory 18 Rate Blood Pressure 113/41 (mmHg) O2 Sat by Pulse 43 Oximetry 04/27/16 04/27/16 04/27/16 01:34 03:23 04:07 Temperature 101.1 F 100.1 F 98.3 F Pulse Rate 62 Respiratory 16 Rate Blood Pressure 111/54 (mmHg) O2 Sat by Pulse 96 Oximetry 04/27/16 04/27/16 04/27/16 05:44 07:31 08:43 Temperature 101.1 F 99.1 F 100.4 F Pulse Rate 70 Respiratory 16 Rate Blood Pressure 108/53 (mmHg) O2 Sat by Pulse 95 Oximetry 04/27/16 04/27/16 04/27/16 11:46 14:39 15:05 Temperature 98.6 F 102.8 F 98.3 F Pulse Rate 66 120 Respiratory 16 20 Rate Blood Pressure 94/52 118/55 109/68 (mmHg) O2 Sat by Pulse 96 90 Oximetry 04/27/16 04/27/16 04/27/16 15:25 16:14 17:07 Temperature 100.7 F 103.6 F 102.7 F Pulse Rate 71 Respiratory 18 Rate Blood Pressure 122/53 (mmHg) O2 Sat by Pulse 98 Oximetry 04/27/16 18:27 Temperature 101.1 F Pulse Rate Respiratory Rate Blood Pressure (mmHg) O2 Sat by Pulse Oximetry Oxygen Devices in Use Now: None Appearance: well appearing, NAD Eyes: No Scleral Icterus, PERRLA Ears/Nose/Mouth/Throat: NL Teeth, Lips, Gums, Clear Oropharnyx, Mucous Membranes Moist Neck: NL Appearance and Movements; NL JVP, Trachea Midline Respiratory: Symmetrical Chest Expansion and Respiratory Effort, Clear to Auscultation Cardiovascular: NL Sounds; No Murmurs; No JVD, RRR Abdominal: NL Sounds; No Tenderness; No Distention Lymphatic: No Cervical Adenopathy Extremities: No Edema, No Clubbing, Cyanosis Skin: No Rash or Ulcers Neurological: Alert and Oriented x 3 Lines/Tubes/Other Access: Clean, Dry and Intact Desir - discharge from around desir Result Diagrams: 04/26/16 04:58 04/26/16 04:58 Additional Lab and Data: Lab Results 04/25/16 04/25/16 04/25/16 Range/Units 20:45 22:20 22:20 WBC 6.4 (3.5-10.8) 10^3/ul RBC 4.98 (4.0-5.4) 10^6/ul Hgb 14.5 (14.0-18.0) g/dl Hct 43 (42-52) % MCV 86 (80-94) fL MCH 29 (27-31) pg MCHC 34 (31-36) g/dl RDW 13 (10.5-15) % Plt Count 172 (150-450) 10^3/ul MPV 8 (7.4-10.4) um3 Neut % (Auto) 78.0 (38-83) % Lymph % (Auto) 9.4 L (25-47) % [place] % (Auto) 11.5 H (1-9) % Eos % (Auto) 0.4 (0-6) % Baso % (Auto) 0.7 (0-2) % Absolute Neuts (auto) 5.0 (1.5-7.7) 10^3/ul Absolute Lymphs (auto) 0.6 L (1.0-4.8) 10^3/ul Absolute Monos (auto) 0.7 (0-0.8) 10^3/ul Absolute Eos (auto) 0 (0-0.6) 10^3/ul Absolute Basos (auto) 0 (0-0.2) 10^3/ul Absolute Nucleated RBC 0 10^3/ul Nucleated RBC % 0 Sodium 135 (133-145) mmol/L Potassium 3.2 L (3.5-5.0) mmol/L Chloride 100 L (101-111) mmol/L Carbon Dioxide 28 (22-32) mmol/L Anion Gap 7 (2-11) mmol/L BUN 10 (6-24) mg/dL Creatinine 0.96 (0.67-1.17) mg/dL Est GFR ( Amer) 102.4 (>60) Est GFR (Non-Af Amer) 79.6 (>60) BUN/Creatinine Ratio 10.4 (8-20) Glucose 99 (70-100) mg/dL Lactic Acid (0.5-2.0) mmol/L Calcium 9.6 (8.6-10.3) mg/dL Urine Color Mariah Urine Appearance Clear Urine pH 6.0 (5-9) Ur Specific [place] 1.020 (1.010-1.030) Urine Protein 2+(100 mg/dl) H (Negative) Urine Ketones Trace H (Negative) Urine Blood 3+ H (Negative) Urine Nitrate Positive H (Negative) Urine Bilirubin Negative (Negative) Urine Urobilinogen Positive H (Negative) Ur Leukocyte Esterase Negative (Negative) Urine WBC (Auto) 3+(>20/hpf) H (Absent) Urine RBC (Auto) 3+(>10/hpf) H (Absent) Urine Bacteria Absent (Absent) Urine Glucose Negative (Negative) 04/25/16 Range/Units 22:20 WBC (3.5-10.8) 10^3/ul RBC (4.0-5.4) 10^6/ul Hgb (14.0-18.0) g/dl Hct (42-52) % MCV (80-94) fL MCH (27-31) pg MCHC (31-36) g/dl RDW (10.5-15) % Plt Count (150-450) 10^3/ul MPV (7.4-10.4) um3 Neut % (Auto) (38-83) % Lymph % (Auto) (25-47) % [place] % (Auto) (1-9) % Eos % (Auto) (0-6) % Baso % (Auto) (0-2) % Absolute Neuts (auto) (1.5-7.7) 10^3/ul Absolute Lymphs (auto) (1.0-4.8) 10^3/ul Absolute Monos (auto) (0-0.8) 10^3/ul Absolute Eos (auto) (0-0.6) 10^3/ul Absolute Basos (auto) (0-0.2) 10^3/ul Absolute Nucleated RBC 10^3/ul Nucleated RBC % Sodium (133-145) mmol/L Potassium (3.5-5.0) mmol/L Chloride (101-111) mmol/L Carbon Dioxide (22-32) mmol/L Anion Gap (2-11) mmol/L BUN (6-24) mg/dL Creatinine (0.67-1.17) mg/dL Est GFR ( Amer) (>60) Est GFR (Non-Af Amer) (>60) BUN/Creatinine Ratio (8-20) Glucose (70-100) mg/dL Lactic Acid 1.3 (0.5-2.0) mmol/L Calcium (8.6-10.3) mg/dL Urine Color Urine Appearance Urine pH (5-9) Ur Specific [place] (1.010-1.030) Urine Protein (Negative) Urine Ketones (Negative) Urine Blood (Negative) Urine Nitrate (Negative) Urine Bilirubin (Negative) Urine Urobilinogen (Negative) Ur Leukocyte Esterase (Negative) Urine WBC (Auto) (Absent) Urine RBC (Auto) (Absent) Urine Bacteria (Absent) Urine Glucose (Negative) Assess/Plan/Problems-Billing Assessment: 61 yo M h/o past syncopal events who developed dysurea later complicated by urinary retention s/p desir insertion then drainage from around desir with desir replacement (and upsizing per patient) now [place] [facility] found with high fevers. - Patient Problems (1) Sepsis Comment: Sepsis with urine as suspected source has h/o prostatitis. May need longer duration of abx therapy on discharge. c/w CTX and gentamycin. c/w NS 200cc/hr x 2 additional liters. If fevers continue into tomorrow plan on reimaging abdomen. Discussed with Dr. Tidwell. Dr. Lambert covering over the weekend (2) Hyperpyrexia Comment: Tmax 103.9 rectal Improved with application of icebags to body, tylenol, and motrin In setting of sepsis abx as above potential for reimaging (3) DVT prophylaxis Comment: enoxaparin
[2016-04-27] MEDS: cefTRIAXone VIAL(*) 1,000 MG in NS 0.9% 50 ML* 50 ML IVPB SCH (22:52)
[2016-04-28] MEDS: Ibuprofen TAB* 600 MG PO PRN ×4 (01:42→23:19)
[2016-04-28] MEDS: Omeprazole CAP* 20 MG PO SCH (05:30)
[2016-04-28] MEDS: Acetaminophen TAB* 325 MG PO PRN ×3 (05:30→20:20)
[2016-04-28] MEDS ORDERED: Gentamicin Trough Level 1 NOTE MISC FOLLOW UP ONE (08:30)
[2016-04-28 08:40] LABS: EGFR African American 132.1 (>60); EGFR Non-African American 102.7 (>60)
[2016-04-28] MEDS: CMCS: Alfuzosin ER (NF) 10 MG TAB.ER PO SCH (08:47)
[2016-04-28] MEDS: Gentamicin ADULT (*) 120 MG in NS 0.9% 100 ML* 100 ML IVPB SCH (08:47)
[2016-04-28] MEDS: Phenazopyridine TAB* 100 MG PO SCH ×3 (08:47→20:20)
[2016-04-28] MEDS: Docusate CAP* 100 MG PO SCH ×3 (09:11→20:20)
[2016-04-28] MEDS ORDERED: Gentamicin PEAK LEVEL* 1 NOTE MISC FOLLOW UP ONE (10:00)
[2016-04-28] MEDS ORDERED: Gentamicin ADULT (*) 160 MG in NS 0.9% 100 ML* 100 ML IVPB SCH (10:36)
--- NOTE | 2016-04-28 11:57 | PN ---
Subjective Date of Service: 04/28/16 Interval History: Patient had lower level fever overnight. Still feeling fuzzy, tired, but better overall. Urinary cath irritates tip of penis. Denies pain. Patient and nurse note subtle confusion. Family History: Unchanged from Admission Social History: Unchanged from Admission Past Medical History: Unchanged from Admission Objective Active Medications: Acetaminophen (Tylenol Tab*) 650 mg PO Q6H PRN PRN Reason: FEVER/PAIN Last Admin: 04/28/16 05:30 Dose: 650 mg Alfuzosin HCl (Uroxatral (Nf)) 10 mg PO DAILY [facility] Last Admin: 04/28/16 08:47 Dose: 10 mg Docusate Sodium (Colace Cap*) 200 mg PO BID [facility] Last Admin: 04/28/16 09:58 Dose: 200 mg Enoxaparin Sodium (Lovenox(*)) 40 mg SUBCUT Q24H [facility] Last Admin: 04/27/16 16:56 Dose: 40 mg Ceftriaxone Sodium 1,000 mg/ (Sodium Chloride) 50 mls @ 200 mls/hr IVPB Q24H [facility] Last Admin: 04/27/16 22:52 Dose: 200 mls/hr Lactated Ringer's (Lactated Ringers 1000 Ml Bag*) 1,000 mls @ 200 mls/hr IV PER RATE [facility] Stop: 04/28/16 23:59 Last Admin: 04/28/16 05:30 Dose: 200 mls/hr Gentamicin Sulfate 160 mg/ (Sodium Chloride) 104 mls @ 208 mls/hr IVPB 0900, 2100 [facility] Ibuprofen (Motrin Tab*) 600 mg PO Q6H PRN PRN Reason: FEVER/PAIN Last Admin: 04/28/16 08:47 Dose: 600 mg Melatonin (Melatonin (Nf)) 3 mg PO BEDTIME PRN; Protocol PRN Reason: Sleep Omeprazole (Prilosec Cap*) 20 mg PO DAILY@0600 [facility] Last Admin: 04/28/16 05:30 Dose: 20 mg Ondansetron HCl (Zofran Inj*) 4 mg IV Q6H PRN PRN Reason: NAUSEA Pharmacy Consult (Gentamicin Adult Per Pharmacy) 1 note FOLLOW UP .GENT PER PHARMACY PRN PRN Reason: PER PROTOCOL Stop: 05/11/16 08:11 Pharmacy Profile Note (Gentamicin Trough Level) 1 note FOLLOW UP 0830 ONE Stop: 04/30/16 08:31 Pharmacy Profile Note (Gentamicin Peak Level*) 1 note FOLLOW UP 1000 [facility] Phenazopyridine HCl (Pyridium Tab*) 200 mg PO TID [facility] Last Admin: 04/28/16 08:47 Dose: 200 mg Tramadol HCl (Ultram*) 50 mg PO Q6H PRN PRN Reason: PAIN Last Admin: 04/26/16 05:28 Dose: 50 mg Vital Signs 04/27/16 04/27/16 04/27/16 16:14 17:07 18:27 Temperature 39.8 C 39.3 C 38.4 C Pulse Rate Respiratory Rate Blood Pressure (mmHg) O2 Sat by Pulse Oximetry 04/27/16 04/28/16 04/28/16 23:35 01:41 03:44 Temperature 37.0 C 37.7 C 36.8 C Pulse Rate 66 63 Respiratory 16 16 Rate Blood Pressure 104/54 114/64 (mmHg) O2 Sat by Pulse 94 95 Oximetry 04/28/16 04/28/16 04/28/16 07:56 08:00 11:32 Temperature 36.9 C 38.1 C Pulse Rate 64 Respiratory 16 20 Rate Blood Pressure 102/56 (mmHg) O2 Sat by Pulse 96 Oximetry Oxygen Devices in Use Now: None Eyes: No Scleral Icterus Ears/Nose/Mouth/Throat: Clear Oropharnyx Neck: NL Appearance and Movements; NL JVP Respiratory: Clear to Auscultation, Clear to Percussion Cardiovascular: NL Sounds; No Murmurs; No JVD, RRR Abdominal: NL Sounds; No Tenderness; No Distention, No Hepatosplenomegaly Lymphatic: No Cervical Adenopathy Skin: No Rash or Ulcers Neurological: Alert and Oriented x 3 Lines/Tubes/Other Access: Clean, Dry and Intact Peripheral IV Result Diagrams: 04/26/16 04:58 04/28/16 08:19 Additional Lab and Data: Lab Results Laboratory Tests 04/26/16 04/28/16 04/28/16 04:58 08:18 08:19 WBC 4.7 Hgb 12.8 L Hct 39 L Plt Count 156 BUN 9 Creatinine 0.77 Gentamicin Peak Gentamicin Trough 0.6 04/28/16 09:13 WBC Hgb Hct Plt Count BUN Creatinine Gentamicin Peak 4.3 Gentamicin Trough Assess/Plan/Problems-Billing Assessment: 61 yo M h/o past syncopal events who developed dysuria later complicated by urinary retention here with sepsis due to prostatitis. - Patient Problems (1) Sepsis Current Visit: Yes Status: Acute Priority: High Comment: Sepsis with urine as suspected source. Urine culture negative (likely due to PO cipro outpatient) has h/o prostatitis. c/w ceftriazone and gentamycin. decrease IFV to NS at 125cc/hr (2) Hyperpyrexia Current Visit: Yes Status: Acute Priority: Medium Code(s): R50.9 - FEVER, UNSPECIFIED SNOMED Code(s): 606166297 Comment: Fever curve improving. Mild confusion not borne out on exam, concerning, will need close observation If fevers return, will CT abdomen, r/o abscess (3) DVT prophylaxis Current Visit: Yes Status: Acute Priority: Low Code(s): QTJ3235 - SNOMED Code(s): 574579451 Comment: on SC enoxaparin
[2016-04-28] MEDS: NS 0.9% 1000 ML* 1,000 ML IV SCH ×2 (12:12→20:48)
[2016-04-28] MEDS: Enoxaparin(*) 40 MG/0.4 ML SYR SUBCUT SCH (17:27)
[2016-04-28] MEDS: Gentamicin ADULT (*) 160 MG in NS 0.9% 100 ML* 100 ML IVPB SCH (20:48)
[2016-04-28] MEDS: Ondansetron INJ* 2 MG/ML VIAL IV PRN (21:34)
--- NOTE | 2016-04-28 22:02 | PN ---
Progress Note - Progress Note Note: Had discussion with Mr Nunez's sister, Dr Nunez, who as per previous report continues to express concern regarding the fact he has been on ABX for a total of 8 days, including the new ABX regimen for 3 days, but continues to mount fevers. I attempted to reassure her that thus far his CXs are negative, his labs and vitals are otherwise stable/normal, and that there is nothing acutely to change tonight. She did ask about an ID consult and was informed that we generally do not have ID available over the weekend and the earliest I would expect that was Saturday. She did not sound satisfied with my answers or reassurance, but stated she had no further questions. She did allude to the fact that Mr Nunez has had "other family members" treated here for sepsis that "did not inspector returned materials well". In fact, her son was here last year with a severe pneumonia which did not respond to therapy. Ultimately he was transferred to a higher level of care for ECMO, but was unable to be recovered and .
[2016-04-28] MEDS: cefTRIAXone VIAL(*) 1,000 MG in NS 0.9% 50 ML* 50 ML IVPB SCH (22:42)
[2016-04-29] MEDS: Acetaminophen TAB* 325 MG PO PRN ×3 (03:08→15:30)
[2016-04-29] MEDS: NS 0.9% 1000 ML* 1,000 ML IV SCH ×2 (05:42→15:29)
[2016-04-29] MEDS: Omeprazole CAP* 20 MG PO SCH (05:42)
[2016-04-29 06:08] LABS: Hematocrit 35 % (42-52); Hemoglobin 11.7 g/dl (14.0-18.0); Mean Corpuscular HGB Conc 34 g/dl (31-36); Mean Corpuscular Hemoglobin 29 pg (27-31); Mean Corpuscular Volume 86 fL (80-94); Mean Platelet Volume 8 um3 (7.4-10.4); Red Blood Count 4.01 10^6/ul (4.0-5.4); Red Cell Distribution Width 13 % (10.5-15); White Blood Count 4.5 10^3/ul (3.5-10.8)
[2016-04-29 06:09] LABS: Add Diff/Slide Review? Slide Review Added; Comments Flag Yes
[2016-04-29 06:22] LABS: BUN/Creatinine Ratio 11.7 (8-20); C Reactive Protein 171.08 mg/L (< 5.00); Calcium 8.1 mg/dL (8.6-10.3); EGFR African American 132.1 (>60); EGFR Non-African American 102.7 (>60); Potassium 3.6 mmol/L (3.5-5.0)
[2016-04-29] MEDS: Ondansetron INJ* 2 MG/ML VIAL IV PRN (07:21)
[2016-04-29] MEDS: Ibuprofen TAB* 600 MG PO PRN ×3 (07:21→20:58)
[2016-04-29] MEDS: Phenazopyridine TAB* 100 MG PO SCH ×3 (09:25→20:28)
[2016-04-29] MEDS: Gentamicin ADULT (*) 160 MG in NS 0.9% 100 ML* 100 ML IVPB SCH ×2 (09:25→21:50)
[2016-04-29] MEDS: Docusate CAP* 100 MG PO SCH ×2 (09:25→20:28)
[2016-04-29] MEDS: CMCS: Alfuzosin ER (NF) 10 MG TAB.ER PO SCH (09:26)
[2016-04-29] MEDS ORDERED: Iohexol 300* (CONTRAST) 10 ML SDV IV SCH (12:45)
--- NOTE | 2016-04-29 13:50 | RAD ---
CLINICAL HISTORY: Abdominal pain COMPARISON: CT abdomen pelvis dated April 25, 2016 TECHNIQUE: Contrast enhanced CT examination of the abdomen and pelvis from the lung bases through the initial tuberosities. The patient received 95 mL Omnipaque 300 intravenously prior to imaging.The patient received oral contrast as well prior to imaging. FINDINGS: VISUALIZED LUNG BASES: There has been interval appearance of a moderate right lung base pleural effusion. There are new densities in the right lower lobe abutting the new pleural effusion and separate. There is a tiny left-sided pleural effusion. ABDOMEN AND PELVIS: In the right lobe of liver there is a fluid density cyst measuring 1.8 cm in diameter unchanged from the previous CT examination. The liver is otherwise homogenous in attenuation and the surface is smooth. The spleen, pancreas and adrenal glands are grossly normal in appearance. There are at least 2 gallstones in the gallbladder lumen measuring 2.8 and 2.5 cm and greatest dimension. There are no definite inflammatory changes of the gallbladder. The kidneys are normal in appearance without focal mass, calcification or signs of hydronephrosis. Mcclellan catheter is seen in place. There is gas in the nondependent portion of the urinary bladder most likely a consequence of the Mcclellan catheter. The oral contrast has progressed as far as the splenic flexure of the colon. The small and large bowel are not distended. The patient's normal appendix is identified in the right lower quadrant with contrast the lumen (image 46 of 94 on the coronal plane images). There is no gross retroperitoneal or mesenteric lymphadenopathy. There is a small amount of free fluid in the pelvis as well as fluid tracking along the inferior margin of the liver and the right paracolic gutter. The prostate is mildly enlarged measuring 4 x 4.6 cm in the axial plane The abdominal aorta and iliac arteries are normal in course and diameter. Infiltration and subcutaneous gas overlying the left abdomen is most consistent with percutaneous injection sites. Degenerative changes include multilevel loss of intervertebral disc height involving the lower thoracic and lumbar spine.There are no sinister bone lesions. IMPRESSION: 1. There has been interval development of moderate right and small left pleural effusions as well as consolidation in the right lower lobe. In the presence of fever of unknown origin right lower lobe pneumonia is considered a diagnostic etiology. 2. Interval appearance of free fluid tracking along the right paracolic gutter and in the dependent portion of the pelvis. 3. Likely cholelithiasis without definite inflammatory changes surrounding the gallbladder or evidence of biliary obstruction. If clinically indicated this can be further characterized with ultrasound. 4. Additional chronic, degenerative and iatrogenic findings as described in the body of the report.
--- NOTE | 2016-04-29 14:08 | PN ---
Subjective Date of Service: 04/29/16 Interval History: Patient feels worse today. Feels weak all over, has no appetite. Reports mild abdo discomfort. Had some nausea, responded to IV Zofran. in room, concerned about untreated sepsis. Sister is ER doctor in [facility], wants a call about patient. Family History: Unchanged from Admission Social History: Unchanged from Admission Past Medical History: Unchanged from Admission Objective Active Medications: Acetaminophen (Tylenol Tab*) 650 mg PO Q6H PRN PRN Reason: FEVER/PAIN Last Admin: 04/29/16 09:26 Dose: 650 mg Alfuzosin HCl (Uroxatral (Nf)) 10 mg PO DAILY [facility] Last Admin: 04/29/16 09:26 Dose: 10 mg Docusate Sodium (Colace Cap*) 200 mg PO BID [facility] Last Admin: 04/29/16 09:25 Dose: 200 mg Enoxaparin Sodium (Lovenox(*)) 40 mg SUBCUT Q24H [facility] Last Admin: 04/28/16 17:27 Dose: 40 mg Ceftriaxone Sodium 1,000 mg/ (Sodium Chloride) 50 mls @ 200 mls/hr IVPB Q24H [facility] Last Admin: 04/28/16 22:42 Dose: 200 mls/hr Gentamicin Sulfate 160 mg/ (Sodium Chloride) 104 mls @ 208 mls/hr IVPB 0900, 2100 [facility] Last Admin: 04/29/16 09:25 Dose: 208 mls/hr Sodium Chloride (Ns 0.9% 1000 Ml*) 1,000 mls @ 125 mls/hr IV PER RATE [facility] Last Admin: 04/29/16 05:42 Dose: 125 mls/hr Ibuprofen (Motrin Tab*) 600 mg PO Q6H PRN PRN Reason: FEVER/PAIN Last Admin: 04/29/16 13:33 Dose: 600 mg Iohexol (Omnipaque 300* (Contrast)) 100 ml IV ONCE [facility] Stop: 05/01/16 23:59 Last Admin: 04/29/16 13:12 Dose: 100 ml Melatonin (Melatonin (Nf)) 3 mg PO BEDTIME PRN; Protocol PRN Reason: Sleep Omeprazole (Prilosec Cap*) 20 mg PO DAILY@0600 [facility] Last Admin: 04/29/16 05:42 Dose: 20 mg Ondansetron HCl (Zofran Inj*) 4 mg IV Q6H PRN PRN Reason: NAUSEA Last Admin: 04/29/16 07:21 Dose: 4 mg Pharmacy Consult (Gentamicin Adult Per Pharmacy) 1 note FOLLOW UP .GENT PER PHARMACY PRN PRN Reason: PER PROTOCOL Stop: 05/11/16 08:11 Pharmacy Profile Note (Gentamicin Trough Level) 1 note FOLLOW UP 0830 ONE Stop: 04/30/16 08:31 Pharmacy Profile Note (Gentamicin Peak Level*) 1 note FOLLOW UP 1000 ONE Stop: 04/30/16 10:01 Phenazopyridine HCl (Pyridium Tab*) 200 mg PO TID [facility] Last Admin: 04/29/16 13:33 Dose: Not Given Tramadol HCl (Ultram*) 50 mg PO Q6H PRN PRN Reason: PAIN Last Admin: 04/26/16 05:28 Dose: 50 mg Vital Signs 04/28/16 04/28/16 04/28/16 20:00 20:17 21:00 Temperature 39.6 C 39.0 C Pulse Rate Respiratory 20 Rate Blood Pressure (mmHg) O2 Sat by Pulse Oximetry 04/29/16 04/29/16 04/29/16 00:22 03:17 04:24 Temperature 36.8 C 37.7 C 37.4 C Pulse Rate 64 60 Respiratory 20 20 Rate Blood Pressure 112/68 119/65 (mmHg) O2 Sat by Pulse 90 94 Oximetry 04/29/16 04/29/16 04/29/16 07:32 07:34 07:43 Temperature 37.9 C 37.9 C Pulse Rate 58 Respiratory 20 16 Rate Blood Pressure 130/68 (mmHg) O2 Sat by Pulse 95 Oximetry 04/29/16 04/29/16 04/29/16 08:34 11:37 12:12 Temperature 38.3 C 37.4 C 37.6 C Pulse Rate 66 Respiratory 16 Rate Blood Pressure 116/64 (mmHg) O2 Sat by Pulse 92 Oximetry Oxygen Devices in Use Now: None Eyes: No Scleral Icterus Ears/Nose/Mouth/Throat: Clear Oropharnyx Neck: NL Appearance and Movements; NL JVP Respiratory: Symmetrical Chest Expansion and Respiratory Effort, Clear to Auscultation, Clear to Percussion Cardiovascular: NL Sounds; No Murmurs; No JVD, RRR Abdominal: No Hepatosplenomegaly, - - tender epigastric, negative tello's sign , no masses Lymphatic: No Cervical Adenopathy Skin: No Rash or Ulcers Neurological: Alert and Oriented x 3 Lines/Tubes/Other Access: Clean, Dry and Intact Peripheral IV Result Diagrams: 04/29/16 05:59 04/29/16 05:59 Additional Lab and Data: Lab Results Microbiology and Other Data: NGTD blood cultures, urine Assess/Plan/Problems-Billing Assessment: 61 yo M h/o past syncopal events who developed dysuria later complicated by urinary retention here with sepsis due to prostatitis. - Patient Problems (1) Sepsis Current Visit: Yes Status: Acute Priority: High Comment: Sepsis with urine as suspected source. Urine culture negative (likely due to PO cipro outpatient),has h/o prostatitis. Differential of high fevers on antibiotics includes fever related to neoplasm, rheumatic disease, abscess, or unusual bacteria not suppressed by ceftriax/gent Will re-culture if fever spikes. May need echo r/o endocarditis. Continue ceftriazone and gentamycin. Continue IFV NS at 125cc/hr (2) Hyperpyrexia Current Visit: Yes Status: Acute Priority: Medium Code(s): R50.9 - FEVER, UNSPECIFIED SNOMED Code(s): 850061613 Comment: Had CT abdomen today, results pending (3) DVT prophylaxis Current Visit: Yes Status: Acute Priority: Low Code(s): [id number] - SNOMED Code(s): 710305310 Comment: on SC enoxaparin
[2016-04-29] MEDS ORDERED: Pantoprazole IV* 40 MG IV SCH (15:00)
[2016-04-29 16:25] LABS: Albumin 2.9 g/dL (3.2-5.2); Direct Bilirubin 0.2 mg/dL (0.03-0.18); Globulin 2.9 g/dL (2-4); Indirect Bilirubin 0.4 mg/dL (0.3-1.0); Total Bilirubin 0.6 mg/dL (0.2-1.0); Total Protein 5.8 g/dL (6.4-8.9)
[2016-04-29] MEDS: NS 0.9% w/ 20 Meq KCL 1000 ML* 1,000 ML IV SCH (16:37)
--- NOTE | 2016-04-29 16:39 | RAD ---
HISTORY: Epigastric pain COMPARISONS: Same day CT of the abdomen and pelvis TECHNIQUE: Multiple transverse and longitudinal ultrasound images were obtained of the right upper quadrant. FINDINGS: LIVER: The liver is homogenous and echogenicity. Liver is enlarged measuring up to 23.8 cm in greatest cephalocaudal dimension. There is a small amount of free fluid along the inferior margin of the right lobe of the liver. Normal hepatic and portal venous blood flow is duplicated with color flow imaging. There is no gross intrahepatic biliary duct dilatation. GALLBLADDER AND EXTRAHEPATIC BILIARY DUCT: There are no echogenic shadowing stones in the gallbladder lumen. The gallbladder is mostly decompressed exhibiting septations. There is a small amount of pericholecystic fluid. The common bile duct measures a maximum diameter of 3 mm. PANCREAS: The portions of the pancreas not obscured by bowel gas are normal in appearance. RIGHT KIDNEY: The right kidney is normal in size, morphology and echogenicity. IMPRESSION: 1. MOSTLY DECOMPRESSED GALLBLADDER WITH FOLD AND SEPTATIONS AND A SMALL AMOUNT OF PERICHOLECYSTIC FLUID. THERE ARE NO ECHOGENIC STONES OR OTHER MATERIAL WITHIN THE GALLBLADDER LUMEN. THE APPEARANCE OF STONES ON THE CT EXAMINATION IS LIKELY ATTRIBUTED TO THE FOLDS AND SEPTATIONS AND THE SMALL AMOUNT OF PERICHOLECYSTIC FLUID. 2. HEPATOMEGALY WITH THE LIVER MEASURING NEARLY 24 CM IN GREATEST CEPHALOCAUDAL DIMENSION. 3. IN ADDITION TO PERICHOLECYSTIC FLUID THERE IS A SMALL AMOUNT OF FLUID ALONG THE INFERIOR MARGIN OF THE RIGHT LOBE OF THE LIVER.
--- NOTE | 2016-04-29 17:23 | PN ---
Progress Note - Progress Note Note: Addendum: CT shows ?cholelithiasis, small RT pleural effusion, fluid in pericolic gutter RT. Discussed with Dr. Allen, will have RUQ U/S. Does not feel effusion would be accessed by thoracentesis w/o U/S US RUQ shows pericholecytic fluid. Discussed case with Dr. Lambert, he is aware. Discussed w/ Dr. Rm, he will assess patient.
[2016-04-29] MEDS: metroNIDAZOLE IV 500 MG/100ML* 500 MG/100 ML BAG IVPB SCH (17:57)
[2016-04-29] MEDS: Enoxaparin(*) 40 MG/0.4 ML SYR SUBCUT SCH (17:57)
[2016-04-29] MEDS ORDERED: Levofloxacin 750 MG IVPREMIX(* 750 MG/150 ML BAG IVPB SCH (20:00)
[2016-04-30] MEDS: Acetaminophen TAB* 325 MG PO PRN (00:15)
[2016-04-30] MEDS: metroNIDAZOLE IV 500 MG/100ML* 500 MG/100 ML BAG IVPB SCH ×3 (02:06→17:59)
[2016-04-30] MEDS: Ibuprofen TAB* 600 MG PO PRN ×2 (03:54→18:37)
[2016-04-30] MEDS: NS 0.9% w/ 20 Meq KCL 1000 ML* 1,000 ML IV SCH (04:56)
[2016-04-30] MEDS ORDERED: Gentamicin Trough Level 1 NOTE MISC FOLLOW UP ONE (08:30)
[2016-04-30] MEDS: Phenazopyridine TAB* 100 MG PO SCH ×3 (09:20→19:31)
[2016-04-30] MEDS: Docusate CAP* 100 MG PO SCH (09:20)
[2016-04-30] MEDS: CMCS: Alfuzosin ER (NF) 10 MG TAB.ER PO SCH (09:20)
[2016-04-30] MEDS: Gentamicin ADULT (*) 160 MG in NS 0.9% 100 ML* 100 ML IVPB SCH (09:20)
[2016-04-30 09:27] LABS: Hematocrit 34 % (42-52); Hemoglobin 11.3 g/dl (14.0-18.0); Mean Corpuscular HGB Conc 34 g/dl (31-36); Mean Corpuscular Hemoglobin 29 pg (27-31); Mean Corpuscular Volume 87 fL (80-94); Mean Platelet Volume 8 um3 (7.4-10.4); Red Blood Count 3.89 10^6/ul (4.0-5.4); Red Cell Distribution Width 14 % (10.5-15); White Blood Count 5.7 10^3/ul (3.5-10.8)
[2016-04-30 09:41] LABS: Albumin 2.9 g/dL (3.2-5.2); C Reactive Protein 195.14 mg/L (< 5.00); Calcium 8.1 mg/dL (8.6-10.3); EGFR African American 140.5 (>60); EGFR Non-African American 109.2 (>60); Globulin 3.1 g/dL (2-4); Potassium 3.6 mmol/L (3.5-5.0); Total Bilirubin 0.8 mg/dL (0.2-1.0)
[2016-04-30] MEDS ORDERED: Docusate CAP* 100 MG PO PRN (09:53)
[2016-04-30] MEDS ORDERED: Gentamicin PEAK LEVEL* 1 NOTE MISC FOLLOW UP ONE (10:00)
--- NOTE | 2016-04-30 10:01 | PN ---
Subjective Date of Service: 04/30/16 Interval History: Patient c/o RUQ and epigastric pain x 2 days. Diminished appetite. No bowel c/ o. Occ nausea. Family History: Unchanged from Admission Social History: Unchanged from Admission Past Medical History: Unchanged from Admission Objective Active Medications: Acetaminophen (Tylenol Tab*) 650 mg PO Q6H PRN PRN Reason: FEVER/PAIN Last Admin: 04/30/16 00:15 Dose: 650 mg Alfuzosin HCl (Uroxatral (Nf)) 10 mg PO DAILY [facility] Last Admin: 04/30/16 09:20 Dose: 10 mg Docusate Sodium (Colace Cap*) 200 mg PO DAILY PRN PRN Reason: CONSTIPATION Enoxaparin Sodium (Lovenox(*)) 40 mg SUBCUT Q24H [facility] Last Admin: 04/29/16 17:57 Dose: 40 mg Gentamicin Sulfate 160 mg/ (Sodium Chloride) 104 mls @ 208 mls/hr IVPB 0900, 2100 [facility] Last Admin: 04/30/16 09:20 Dose: 208 mls/hr Potassium Chloride/Sodium Chloride (Ns 0.9% W/ 20 Meq Kcl 1000 Ml*) 1,000 mls @ 125 mls/hr IV PER RATE [facility] Last Admin: 04/30/16 04:56 Dose: 125 mls/hr Levofloxacin/Dextrose (Levaquin 750 Mg Ivpremix(*)) 750 mg in 150 mls @ 100 mls /hr IVPB Q24H [facility] Last Admin: 04/29/16 19:41 Dose: 100 mls/hr Metronidazole/Sodium Chloride (Flagyl 500 Mg Ivpb*) 500 mg in 100 mls @ 100 mls /hr IVPB Q8H [facility] Last Admin: 04/30/16 02:06 Dose: 100 mls/hr Ibuprofen (Motrin Tab*) 600 mg PO Q6H PRN PRN Reason: FEVER/PAIN Last Admin: 04/30/16 03:54 Dose: 600 mg Iohexol (Omnipaque 300* (Contrast)) 100 ml IV ONCE [facility] Stop: 05/01/16 23:59 Last Admin: 04/29/16 13:12 Dose: 100 ml Ondansetron HCl (Zofran Inj*) 4 mg IV Q6H PRN PRN Reason: NAUSEA Last Admin: 04/29/16 07:21 Dose: 4 mg Pharmacy Consult (Gentamicin Adult Per Pharmacy) 1 note FOLLOW UP .GENT PER PHARMACY PRN PRN Reason: PER PROTOCOL Stop: 05/11/16 08:11 Pharmacy Profile Note (Gentamicin Peak Level*) 1 note FOLLOW UP 1000 ONE Stop: 04/30/16 10:01 Phenazopyridine HCl (Pyridium Tab*) 200 mg PO TID [facility] Last Admin: 04/30/16 09:20 Dose: 200 mg Tramadol HCl (Ultram*) 50 mg PO Q6H PRN PRN Reason: PAIN Last Admin: 04/26/16 05:28 Dose: 50 mg Vital Signs 04/29/16 04/29/16 04/29/16 11:37 12:12 15:01 Temperature 99.3 F 99.6 F 100.9 F Pulse Rate 66 Respiratory 16 Rate Blood Pressure 116/64 (mmHg) O2 Sat by Pulse 92 Oximetry 04/29/16 04/29/16 04/29/16 15:33 18:07 19:50 Temperature 98.7 F 99.4 F 97.4 F Pulse Rate 64 73 Respiratory 16 16 Rate Blood Pressure 111/64 104/48 (mmHg) O2 Sat by Pulse 91 89 Oximetry 04/29/16 04/29/16 04/29/16 20:00 20:55 23:44 Temperature 100.6 F 99.1 F Pulse Rate 64 Respiratory 17 20 Rate Blood Pressure 108/60 (mmHg) O2 Sat by Pulse 87 Oximetry 04/30/16 04/30/16 04/30/16 02:30 03:06 07:43 Temperature 98.4 F 97.8 F Pulse Rate 60 Respiratory 20 18 Rate Blood Pressure 106/64 (mmHg) O2 Sat by Pulse 95 Oximetry 04/30/16 08:03 Temperature 98.5 F Pulse Rate 51 Respiratory 16 Rate Blood Pressure 123/68 (mmHg) O2 Sat by Pulse 95 Oximetry Oxygen Devices in Use Now: None Appearance: Alert, supine in bed. In fair spirits. Lookws comfortable. Eyes: No Scleral Icterus Ears/Nose/Mouth/Throat: Clear Oropharnyx, Mucous Membranes Moist Neck: NL Appearance and Movements; NL JVP, No Thyroid Enlargement, Masses Respiratory: Symmetrical Chest Expansion and Respiratory Effort, Clear to Auscultation, Clear to Percussion Cardiovascular: NL Sounds; No Murmurs; No JVD, RRR, No Edema, - Abdominal: NL Sounds; No Tenderness; No Distention, No Hepatosplenomegaly, - Extremities: No Edema, No Clubbing, Cyanosis, - Skin: No Rash or Ulcers, No Nodules or Sclerosis, - Neurological: Alert and Oriented x 3, NL Sensation Result Diagrams: 04/30/16 08:47 04/30/16 08:47 Additional Lab and Data: Lab Results Microbiology and Other Data: NGTD blood cultures, urine Assess/Plan/Problems-Billing Assessment: 61 yo M h/o past syncopal events who developed dysuria later complicated by urinary retention here with sepsis due to prostatitis. - Patient Problems (1) Abnormal LFTs Current Visit: Yes Status: Acute Code(s): R79.89 - OTHER SPECIFIED ABNORMAL FINDINGS OF BLOOD CHEMISTRY SNOMED Code(s): 803127370 Comment: With abdominal pain. Dr. Quintanilla to see. Repeat LFT's 05/01. (2) Fever Current Visit: Yes Status: Acute Code(s): R50.9 - FEVER, UNSPECIFIED SNOMED Code(s): 060488875 Comment: Note CRP 171 04/29, 195 04/30. ? continue levofloxacn, will discuss with Dr. Ross. (3) Urinary retention Current Visit: Yes Status: Acute Code(s): R33.9 - RETENTION OF URINE, UNSPECIFIED SNOMED Code(s): 642930751 Comment: I will discuss possible voiding trial with Dr. Grant. Continue tamsulosin. Lidocaine jelly for penile irritation. Continue phenazopyrdine.
[2016-04-30] MEDS: Lidocaine 2% JELLY* 6 ML JELLY TOPICAL SCH ×2 (13:39→19:31)
[2016-04-30] MEDS: Enoxaparin(*) 40 MG/0.4 ML SYR SUBCUT SCH (18:00)
[2016-05-01] MEDS: metroNIDAZOLE IV 500 MG/100ML* 500 MG/100 ML BAG IVPB SCH ×2 (02:15→10:30)
[2016-05-01 05:56] LABS: Albumin 2.7 g/dL (3.2-5.2); BUN/Creatinine Ratio 11.4 (8-20); Calcium 8.1 mg/dL (8.6-10.3); EGFR African American 128.2 (>60); EGFR Non-African American 99.7 (>60); Globulin 3.1 g/dL (2-4); Potassium 3.5 mmol/L (3.5-5.0); Total Bilirubin 0.7 mg/dL (0.2-1.0); Total Protein 5.8 g/dL (6.4-8.9)
[2016-05-01] MEDS: Phenazopyridine TAB* 100 MG PO SCH ×3 (08:21→13:58)
[2016-05-01] MEDS: CMCS: Alfuzosin ER (NF) 10 MG TAB.ER PO SCH (08:22)
[2016-05-01] MEDS: Lidocaine 2% JELLY* 6 ML JELLY TOPICAL SCH ×2 (08:22→13:25)
[2016-05-01 11:49] VITALS: BP 126/64
[2016-05-01] MEDS ORDERED: Levofloxacin 500 MG IVPREMIX(* 500 MG/100 ML BAG IVPB SCH (12:00)
--- NOTE | 2016-05-01 12:14 | PN ---
Subjective Date of Service: 05/01/16 Interval History: Pt is feeling lousy. He continues to have the sensation of being hot. He continues to have abdominal discomfort-most severe in the epigastrum but radiating to the RUQ. He has not been eating much. He has also had a headache his entire hospital stay though denies any neck stiffness or pain with flexion of the neck. Objective Active Medications: Acetaminophen (Tylenol Tab*) 650 mg PO Q6H PRN PRN Reason: FEVER/PAIN Last Admin: 04/30/16 00:15 Dose: 650 mg Alfuzosin HCl (Uroxatral (Nf)) 10 mg PO DAILY [facility] Last Admin: 05/01/16 08:22 Dose: 10 mg Docusate Sodium (Colace Cap*) 200 mg PO DAILY PRN PRN Reason: CONSTIPATION Enoxaparin Sodium (Lovenox(*)) 40 mg SUBCUT Q24H [facility] Last Admin: 04/30/16 18:00 Dose: 40 mg Levofloxacin/Dextrose (Levaquin 500 Mg Ivpremix(*)) 500 mg in 100 mls @ 100 mls /hr IVPB Q24H [facility] Ibuprofen (Motrin Tab*) 600 mg PO Q6H PRN PRN Reason: FEVER/PAIN Last Admin: 04/30/16 18:37 Dose: 600 mg Iohexol (Omnipaque 300* (Contrast)) 100 ml IV ONCE [facility] Stop: 05/01/16 23:59 Last Admin: 04/29/16 13:12 Dose: 100 ml Lidocaine HCl (Lidocaine 2% Jelly*) 1 applic TOPICAL TID [facility] Last Admin: 05/01/16 08:22 Dose: 1 applic Ondansetron HCl (Zofran Inj*) 4 mg IV Q6H PRN PRN Reason: NAUSEA Last Admin: 04/29/16 07:21 Dose: 4 mg Phenazopyridine HCl (Pyridium Tab*) 200 mg PO TID [facility] Last Admin: 05/01/16 08:21 Dose: 200 mg Tramadol HCl (Ultram*) 50 mg PO Q6H PRN PRN Reason: PAIN Last Admin: 04/26/16 05:28 Dose: 50 mg Vital Signs 04/30/16 04/30/16 04/30/16 14:50 20:00 20:03 Temperature 97.9 F 99.1 F Pulse Rate 55 55 Respiratory 16 16 16 Rate Blood Pressure 94/70 123/66 (mmHg) O2 Sat by Pulse 93 94 Oximetry 04/30/16 05/01/16 05/01/16 23:43 03:16 07:28 Temperature 98.9 F 98.0 F 100.7 F Pulse Rate 62 53 53 Respiratory 16 16 16 Rate Blood Pressure 126/63 121/69 129/71 (mmHg) O2 Sat by Pulse 90 91 94 Oximetry 05/01/16 05/01/16 08:00 11:46 Temperature 100.1 F Pulse Rate 57 Respiratory 16 16 Rate Blood Pressure 126/64 (mmHg) O2 Sat by Pulse 90 Oximetry Oxygen Devices in Use Now: None Appearance: Middle aged male lying flat in bed, pt looks unwell but in NAD Eyes: No Scleral Icterus Ears/Nose/Mouth/Throat: Mucous Membranes Moist Respiratory: Symmetrical Chest Expansion and Respiratory Effort, Clear to Auscultation - anteriorly Cardiovascular: NL Sounds; No Murmurs; No JVD, RRR, No Edema Abdominal: - - BS+ soft, ND, tenderness to palpation epigastrum>RUQ Extremities: No Clubbing, Cyanosis Skin: No Rash or Ulcers, No Nodules or Sclerosis Neurological: Alert and Oriented x 3 Result Diagrams: 04/30/16 08:47 05/01/16 04:56 Additional Lab and Data: Lab Results Microbiology and Other Data: NGTD blood cultures, urine Assess/Plan/Problems-Billing Mr Nunez is a 61 yo M with a PMHx of BPH who several days prior to admission began to have symptoms of a UTI and was phoned in a prescription for cipro, then developed symptoms of urinary retention, had a desir placed and then returned to the ER again for rigors and leakage around the desir and for a 3rd time returned to the ER for confusion and rigors and was admitted for failed outpatient therapy of a UTI. It was then felt the patient likely had partially treated prostatitis but has since had persistent fevers of unclear etiology. - Patient Problems (1) Fever Current Visit: Yes Status: Acute Code(s): R50.9 - FEVER, UNSPECIFIED SNOMED Code(s): 252774974 Comment: The patient continues to have intermittent fevers without clear etiology. DDx includes prostatitis, drug fever (ceftriaxone), RLL pneumonia, biliary/liver disease. I think the patient would benefit from an ID consultation -will therefore transfer the patient to [facility] for further evaluation and management. I have added back levaquin given the RLL infiltrate seen on the abd/ pelvis CT 04/29/16. Continue gentamicin for now. Stop flagyl as there are no clear indications the patient has acute cholecystitis. (2) Acute prostatitis Current Visit: Yes Status: Acute Code(s): N41.0 - ACUTE PROSTATITIS SNOMED Code(s): 36271036 Comment: It is postulated that the patient had partially [facility]. He was seen in consultation by Dr. Grant who felt that gentamicin should be added. Despite adding gentamicin to ceftriaxone that was started on admission the patient continues to have intermittent fevers. It is now unclear if the patient ever had prostatitis and if he did, if it is still the prostatitis that is causing the persistent fevers. I believe the patient needs an ID consultation which is currently not available at [facility]. Danielle has kindly accepted the patient in transfer to [facility]. (3) Abnormal LFTs Current Visit: Yes Status: Acute Code(s): R79.89 - OTHER SPECIFIED ABNORMAL FINDINGS OF BLOOD CHEMISTRY SNOMED Code(s): 391486400 Comment: LFTs remain elevated without significant change. Abd/pelvis CT and RUQ US did not reveal a clear cause of the elevations. GI saw the patient and felt that the rise in LFTs could be related to the initiation of ceftriaxone which has now been discontinued. Will need continued monitoring of the LFTs. (4) Urinary retention Current Visit: Yes Status: Acute Code(s): R33.9 - RETENTION OF URINE, UNSPECIFIED SNOMED Code(s): 197418047 Comment: Continue alfuzosin. Will need a voiding trial in the near future and continued follow up with Dr. Tidwell. (5) DVT prophylaxis Current Visit: Yes Status: Acute Priority: Low Code(s): [id number] - SNOMED Code(s): 808879111 Comment: Lovenox (6) Full code status Current Visit: Yes Status: Acute Code(s): Z78.9 - OTHER SPECIFIED HEALTH STATUS SNOMED Code(s): 412163872 Status and Disposition: Transfer to [facility]
--- NOTE | 2016-05-01 13:20 | TRS ---
DATE OF ADMISSION: 04/25/2016. DATE OF TRANSFER TO [facility]: 05/01/2016. PRIMARY CARE PROVIDER: Dr. Frederick. PRINCIPAL DIAGNOSIS: Fever of unclear etiology, though possibly prostatitis versus drug fever versus pneumonia. SECONDARY DIAGNOSIS: Benign prostate hypertrophy with urinary retention. DISCHARGE MEDICATIONS: 1. Tylenol 650 mg p.o. q.6 hours prn pain or fever. 2. Alfuzosin 10 mg p.o. daily. 3. Colace 200 mg p.o. daily prn constipation. 4. Lovenox 40 mg subcutaneous daily. 5. Ibuprofen 600 mg p.o. q.6 hours prn fever. 6. Levaquin 500 mg p.o. daily. 7. Lidocaine jelly applied topically t.i.d. to the meatus of the penis. 8. Zofran 4 mg IV q.6 hours prn nausea. 9. Pyridium 200 mg p.o. t.i.d. 10. Tramadol 50 mg p.o. q.6 hours prn pain. HOSPITAL COURSE: Mr. Nunez is a 61-year-old male who approximately five days prior to admission began to complain of urinary tract infection symptoms. At that time, he contacted his primary care provider who called in a prescription for Ciprofloxacin to his pharmacy. The patient took the prescription for approximately five days. The patient then presented to the emergency room on 04/22/2016 with complaints of being unable to urinate. At that time, a Mcclellan catheter was placed. The patient was discharged home. The patient re-presented to the emergency room on 04/24/2016 at which time he was complaining of leakage around his Mcclellan catheter, continued sensation as if he has to urinate, and diffuse body chills and rigors. Additionally he complained of low back pain. At that time, the ER provider noted that he had chills, but no fevers. No tachycardia or elevated white blood cell count was identified. There was no objective evidence to support sepsis. He was recommended to continue taking Cipro. His UA showed only slightly increased WBC's. His Mcclellan catheter was changed. The plan was to follow-up with Urology and return to the emergency room if there is any fever or shaking chills. The patient then re- presented to the emergency room 04/25/2016 with complaints of confusion and syncope. The patient followed up with Urology at which time he was prescribed Flomax. After his first dose of Flomax the Saturday prior to admission, he was on the toilet defecating and without any prodromal symptoms, he had a syncopal episode. On the day of presentation to the emergency room, his family member noted that he was not making sense. There was concern about sepsis which prompted him returning to the emergency room for re-evaluation. The patient was ultimately admitted for progressive infectious symptoms and worsening UA despite adequate antibiotic therapy and failed outpatient management. The patient was seen in consultation by Urology on 04/26/2016. At that time, it was recommended that he be started on Gentamicin. The patient had been on Ceftriaxone alone. The patient has remained on Gentamicin since the Urology consultation on 04/26/2016. The patient remained on Ceftriaxone through 2016; however, this was then discontinued and the patient was changed for a single dose of Levaquin. The patient received this on 04/29/2016. On 2016, the patient received only Gentamicin. Despite the numerous antibiotics he had been started on, the patient continued to spike fevers. His T-max was 104.2 on 04/26/2016 at 2225. The patient's fever curve does appear to be improving; however, he continues to have intermittent fevers. At the time of contact to [facility], the patient's temperature was elevated at 100.7. The patient overall feels very unwell. He continues to have the Mcclellan catheter in place. The etiology of the patient's fever is not completely clear. It is possible that this does represent prostatitis with the urine specimen being sterilized from the five days of Ciprofloxacin he had prior to admission. This could represent a drug fever from Ceftriaxone. Additionally, the patient had a CT scan done on 04/29/2016 for abdominal pain and persistent fever and at that time he was found to have the interval development of a right lower lobe infiltrate and bilateral pleural effusions. Because of this, I have started Levaquin 500 mg IV daily to be started prior to transfer to [facility]. This is in addition to Gentamicin. The patient, also during the course of this hospitalization, developed elevated LFT's. His AST on 04/29/2016 was elevated at 121, his ALT elevated at 150, and his alkaline phosphatase elevated at 144. At that time his CRP was also elevated at 171.08. This is a significant change in his LFT's from 04/24/2016 when labs were last drawn. At that time his LFT's were normal. His LFT's remained elevated. The patient was seen in consultation by Dr. Quintanilla from GI who questioned whether or not the elevated LFT's may be related to Ceftriaxone use. Additionally, the patient had a CT abdomen and pelvis on 05/04/2016 and a gallbladder ultrasound on 04/29/2016. There were no clear signs of cholecystitis at that time. There was a scant amount of pericholecystic fluid noted, as well as pericolic gutter free fluid. It was at the time of the [address] scan that the interval development of a moderate right and small left pleural effusion was noted. On 05/01/2016, it was felt that the patient would benefit from an Infectious Disease consultation. Unfortunately, our Infectious Disease physician is away for the next week. I felt it was in the patient's best interest to be transferred for work-up of his continued fever despite multiple different antibiotic regimens. The patient has kindly been accepted in transfer to [facility] by Dr. Danielle. FOLLOW-UP CONCERNS: The patient is being transferred to [facility] today, 05/01/2016. ACTIVITY LEVEL: As tolerated. DIET: Regular as tolerated. CONDITION ON TRANSFER: Stable. Fifty minutes were spent transferring this patient. CC: Dr. Frederick * [id number]/[facility] #: [id number] MTDD
[2016-05-02] MEDS ORDERED: Gentamicin Trough Level 1 NOTE MISC FOLLOW UP ONE (08:30)
[2016-05-02] MEDS ORDERED: Gentamicin PEAK LEVEL* 1 NOTE MISC FOLLOW UP ONE (10:00)
--- NOTE | 2016-05-02 11:41 | CONS ---
GASTROENTEROLOGY CONSULTATION REPORT DATE OF CONSULTATION: 04/30/16. INDICATION: Increased liver function test. REQUESTING PHYSICIAN: Dr. Ryan. HISTORY: Mr. Nunez is a very pleasant 61-year-old gentleman who was admitted on the for urinary sepsis. He had been trialed on Cipro as an outpatient and when he was admitted to the hospital was started on Ceftriaxone. It was stopped on the . He was noted to have increased LFTs starting on the . He denies having liver disease in the past. He does drink approximately 3 bottles of wine per week. He denies any family history of liver disease. He denies any mushrooms or Tylenol use. PAST MEDICAL HISTORY: Significant for BPH. PAST SURGICAL HISTORY: Includes tonsillectomy. ALLERGIES: None. FAMILY HISTORY: Ovarian cancer, skin cancer, melanoma. SOCIAL HISTORY: Denies any tobacco. Three bottles of wine per week. No IV drugs. REVIEW OF SYSTEMS: Twelve systems were reviewed, other than that mentioned in the HPI were unremarkable. PHYSICAL EXAM: Vital Signs: Temperature is 97.9, blood pressure 94/70, pulse is 55. General: Well-appearing male, lying flat in bed, alert, oriented, pleasant, and fluent. HEENT: Mucous membranes are moist without lesions, ulcers , or exudate. Neck is supple. Trachea is midline. Head is normocephalic, atraumatic. Heart: Regular rate and rhythm. Lungs: Clear to auscultation. Abdomen: Positive bowel sounds. Soft, nontender, nondistended. No hepatosplenomegaly, masses, rebound, or guarding. He actually does have very mild right upper quadrant tenderness. Skin is warm and dry. DIAGNOSTIC STUDIES/LAB DATA: He did have a CT abdomen and pelvis on the which showed a normal liver. He then had a repeat CT 4 days later which showed 2 possible gallstones and unchanged liver from prior. He had a gallbladder ultrasound on the which revealed decompressed gallbladder with fold and septations and a small amount of pericholecystic fluid; no stones or other material within the gallbladder lumen; slightly enlarged liver. Labs of note: White count is 5.7, hemoglobin is 11.3. His LFTs were normal on the . On the , his direct bilirubin increased to 0.2, AST to 121, ALT to 150, alk phos 144, CRP is 171. Amylase is normal. Yesterday, his AST went down to 99, ALT went up to 160, alk phos went up to 196, CRP went up to 195. His hepatitis A, B, and C panel are negative. ASSESSMENT AND PLAN: This is a pleasant 61-year-old gentleman admitted with urosepsis and increased LFTs. Most likely cause for his acute rise in LFTs, when they were normal on the 7th, would be one of his medications. It could be either the Cipro or the Ceftriaxone. He was also started on Gentamicin. Most likely it is the Ceftriaxone. His hepatitis panel is negative. His ultrasound does not show any obstructing lesions in the gallbladder or the liver. If this is a drug-induced hepatitis, it should peak in the next few days and then start coming down. I would recommend we continue following his labs. If it does not come down soon, we should check in for hemochromatosis, autoimmune hepatitis, primary biliary cholangitis. We will continue to follow along. CC: Dr. Frederick* [id number]/[facility] #: [id number] [facility] HOSPITALKadie
--- NOTE | 2016-06-22 10:39 | ED ---
Chay Wilson Adam, scribed for Lam Arcos MD on 04/25/16 at 2027 . GI/ HPI - HPI Summary HPI Summary: Pt is a 61 year old male presenting with a leaking catheter and associated pain. He was seen yesterday for the same complaint. He previously had an 18 [place] catheter in and when he came in yesterday he had a 20 Cou[place] catheter put in and was discharged home. He had painful back pressure around 03:00 this morning but it was gone when he woke up several hours later. Then the catheter started leaking again at 11:00 this morning and it has leaked several times since then. The leakage occurs around the pt's penis. He also c/o stinging pain that has been increasing throughout the day. Pt also c/o 2 episodes of shaking and chills, one at noon and one several hours later. He has taken Tylenol today. There were no blood clots in the pt's urine yesterday. The pt has an enlarged prostate. He will be seeing a new urologist tomorrow. - History of Current Complaint Chief Complaint: EDUrogenitalProblems Time Seen by Provider: 04/25/16 20:18 Stated Complaint: CATHEDER OVER FLOWS/PAIN Hx Obtained From: Patient Onset/Duration: Started Days Ago, Atraumatic, Still Present Timing: Constant Severity: Mild Current Severity: Moderate Pain Intensity: 3 Additional Locations for Males: Penis Pain Characteristics: Other: - Stinging Associated Signs and Symptoms: Positive: Chills Aggravating Factor(s): Urination Alleviating Factor(s): Nothing - Allergy/Home Medications Allergies/Adverse Reactions: Allergies Allergy/AdvReac Type Severity Reaction Status Date / Time No Known Allergies Allergy Verified 04/24/16 20:36 Home Medications: Home Medications NK [No Home Medications Reported] 04/26/16 [History Confirmed 04/26/16] PMH/Surg Hx/FS Hx/Imm Hx Endocrine/Hematology History: Denies: Hx Diabetes Cardiovascular History: Denies: Hx Congestive Heart Failure, Hx Hypertension History: Reports: Other Problems/Disorders - Hx Urinary retention Denies: Hx Renal Disease Infectious Disease History: No Infectious Disease History: Denies: Traveled Outside the [place] in Last 30 Days - Family History Known Family History: Positive: Other - Melanoma (mother) - Social History Occupation: Employed Full-time Lives: With Family - Alcohol Use: Weekly Hx Substance Use: No Substance Use Type: Reports: None Hx Tobacco Use: No Review of Systems Positive: Chills. Negative: Fever Positive: pain, other - Leaking catheter All Other Systems Reviewed And Are Negative: Yes Physical Exam Triage Information Reviewed: Yes Vital Signs On Initial Exam: Initial Vitals Temp Pulse Resp BP Pulse Ox 98.4 F 91 22 137/66 100 04/25/16 20:09 04/25/16 20:09 04/25/16 20:09 04/25/16 20:09 04/25/16 20:09 Vital Signs Reviewed: Yes Appearance: Positive: Well-Appearing, No Pain Distress Skin: Positive: Skin Color Reflects Adequate Perfusion Head/Face: Positive: Normal Head/Face Inspection Eyes: Positive: SUDHA ENT: Positive: Normal ENT inspection Respiratory/Lung Sounds: Positive: Clear to Auscultation, Breath Sounds Present Cardiovascular: Positive: RRR Abdomen Description: Positive: Nontender, Other: - Negative flank tenderness Male Genital Exam: Positive: other - Catheter in place Neurological: Positive: Sensory/Motor Intact, Alert, Oriented to Person Place, Time Psychiatric: Positive: Affect/Mood Appropriate Diagnostics - Vital Signs Vital Signs Temp Pulse Resp BP Pulse Ox 04/25/16 20:09 98.4 F 91 22 137/66 100 - Laboratory Lab Results: Lab Results 04/25/16 04/25/16 04/25/16 Range/Units 20:45 22:20 22:20 WBC 6.4 (3.5-10.8) 10^3/ul RBC 4.98 (4.0-5.4) 10^6/ul Hgb 14.5 (14.0-18.0) g/dl Hct 43 (42-52) % MCV 86 (80-94) fL MCH 29 (27-31) pg MCHC 34 (31-36) g/dl RDW 13 (10.5-15) % Plt Count 172 (150-450) 10^3/ul MPV 8 (7.4-10.4) um3 Neut % (Auto) 78.0 (38-83) % Lymph % (Auto) 9.4 L (25-47) % [place] % (Auto) 11.5 H (1-9) % Eos % (Auto) 0.4 (0-6) % Baso % (Auto) 0.7 (0-2) % Absolute Neuts (auto) 5.0 (1.5-7.7) 10^3/ul Absolute Lymphs (auto) 0.6 L (1.0-4.8) 10^3/ul Absolute Monos (auto) 0.7 (0-0.8) 10^3/ul Absolute Eos (auto) 0 (0-0.6) 10^3/ul Absolute Basos (auto) 0 (0-0.2) 10^3/ul Absolute Nucleated RBC 0 10^3/ul Nucleated RBC % 0 Sodium 135 (133-145) mmol/L Potassium 3.2 L (3.5-5.0) mmol/L Chloride 100 L (101-111) mmol/L Carbon Dioxide 28 (22-32) mmol/L Anion Gap 7 (2-11) mmol/L BUN 10 (6-24) mg/dL Creatinine 0.96 (0.67-1.17) mg/dL Est GFR ( Amer) 102.4 (>60) Est GFR (Non-Af Amer) 79.6 (>60) BUN/Creatinine Ratio 10.4 (8-20) Glucose 99 (70-100) mg/dL Lactic Acid (0.5-2.0) mmol/L Calcium 9.6 (8.6-10.3) mg/dL Urine Color Mariah Urine Appearance Clear Urine pH 6.0 (5-9) Ur Specific [place] 1.020 (1.010-1.030) Urine Protein 2+(100 mg/dl) H (Negative) Urine Ketones Trace H (Negative) Urine Blood 3+ H (Negative) Urine Nitrate Positive H (Negative) Urine Bilirubin Negative (Negative) Urine Urobilinogen Positive H (Negative) Ur Leukocyte Esterase Negative (Negative) Urine WBC (Auto) 3+(>20/hpf) H (Absent) Urine RBC (Auto) 3+(>10/hpf) H (Absent) Urine Bacteria Absent (Absent) Urine Glucose Negative (Negative) 04/25/16 Range/Units 22:20 WBC (3.5-10.8) 10^3/ul RBC (4.0-5.4) 10^6/ul Hgb (14.0-18.0) g/dl Hct (42-52) % MCV (80-94) fL MCH (27-31) pg MCHC (31-36) g/dl RDW (10.5-15) % Plt Count (150-450) 10^3/ul MPV (7.4-10.4) um3 Neut % (Auto) (38-83) % Lymph % (Auto) (25-47) % [place] % (Auto) (1-9) % Eos % (Auto) (0-6) % Baso % (Auto) (0-2) % Absolute Neuts (auto) (1.5-7.7) 10^3/ul Absolute Lymphs (auto) (1.0-4.8) 10^3/ul Absolute Monos (auto) (0-0.8) 10^3/ul Absolute Eos (auto) (0-0.6) 10^3/ul Absolute Basos (auto) (0-0.2) 10^3/ul Absolute Nucleated RBC 10^3/ul Nucleated RBC % Sodium (133-145) mmol/L Potassium (3.5-5.0) mmol/L Chloride (101-111) mmol/L Carbon Dioxide (22-32) mmol/L Anion Gap (2-11) mmol/L BUN (6-24) mg/dL Creatinine (0.67-1.17) mg/dL Est GFR ( Amer) (>60) Est GFR (Non-Af Amer) (>60) BUN/Creatinine Ratio (8-20) Glucose (70-100) mg/dL Lactic Acid 1.3 (0.5-2.0) mmol/L Calcium (8.6-10.3) mg/dL Urine Color Urine Appearance Urine pH (5-9) Ur Specific [place] (1.010-1.030) Urine Protein (Negative) Urine Ketones (Negative) Urine Blood (Negative) Urine Nitrate (Negative) Urine Bilirubin (Negative) Urine Urobilinogen (Negative) Ur Leukocyte Esterase (Negative) Urine WBC (Auto) (Absent) Urine RBC (Auto) (Absent) Urine Bacteria (Absent) Urine Glucose (Negative) Result Diagrams: 04/30/16 08:47 05/01/16 04:56 Lab Statement: Any lab studies that have been ordered have been reviewed, and results considered in the medical decision making process. GIGU Course/Dx - Diagnoses Differential Diagnoses - Male: Pyelonephritis - Primary concern for catheter dysfunction and prostate spasm based on history. Later during UA analysis, patient's sister called and threatened my job, told me that I am incompetent because patient is clearly altered, although patient was nontoxic appearing and not altered. When I went to re-evaluate and re-take the history, the daughter finally decided to give input that the patient was confused. She did not think to tell this to me during the initial 25 minute HPI, but instead thought of it and called her Aunt, Dr. Nunez, in [place] who called the ED here and told me that several family members had here and that I was incompetent because I was not admitting him based on the initial history of catheter dysfunction. I told her that I would take her recommendations under advisement, although it was inappropriate to direct care of someone that she has not examined., Urinary Tract Infection Provider Diagnoses: Urinary tract infection - Physician Notifications Discussed Care Of Patient With: the hospitalist at 22:15. Patient will be admitted. Discharge - Discharge Plan Condition: Stable Disposition: ADMITTED TO [facility] The documentation as recorded by the Chay ballesteros Adam accurately reflects the service I personally performed and the decisions made by me, Lam Arcos MD.
== END 2016-05-01 14:45 | disposition short-term general hospital (02) | DRG 720 ==
LOC: ED 20:06 → MEDTELE 22:57 → OBSVTOIN 04-26 10:00 → MEDTELE 04-30 21:16
PROVIDERS: ADMIT Hospitalist; ATTEND Hospitalist
DX: A41.9 Sepsis, unspecified organism (principal); J18.9 Pneumonia, unspecified organism; J90 Pleural effusion, not elsewhere classified; N41.0 Acute prostatitis; N39.0 Urinary tract infection, site not specified; R50.2 Drug induced fever; T36.1X5A Adverse effect of cephalosporins and other beta-lactam antibiotics, initial encounter; N40.1 Benign prostatic hyperplasia with lower urinary tract symptoms; R33.8 Other retention of urine; R94.5 Abnormal results of liver function studies; Y92.9 Unspecified place or not applicable; Z80.8 Family history of malignant neoplasm of other organs or systems; Z80.41 Family history of malignant neoplasm of ovary
CPT/HCPCS: 36415; 74176; 74177; 76705; 80048; 80053; 80074; 80076; 80170; 81003; 82150; 82565; 83605; 83690; 84145; 84153; 84520; 85025; 85027; 86140; 87040; 87086; 87502; A9270-GY; G0103; J0696; J1580; J1650; J1956; J2405; J3490; Q9967

== ENCOUNTER 2021-12-30 05:53 | Observation (INO) ==
[2021-12-30] MEDS ORDERED: Lactated Ringers 1000 ml BAG 1,000 ML IV ONE ×2 (06:28→11:53)
[2021-12-30 06:44] LABS: ABS Lymphocytes 0.4 10^3/ul (1.0-4.8); ABS Monocytes 0.3 10^3/ul (0-0.8); ABS Neutrophils 9.3 10^3/ul (1.5-7.7); Eosinophil % 0.2 %; Hematocrit 35 % (42-52); Hemoglobin 11.7 g/dL (14.0-18.0); Lymphocyte % 3.8 %; Mean Corpuscular HGB Conc 33 g/dL (31-36); Mean Corpuscular Hemoglobin 29 pg (27-31); Mean Corpuscular Volume 87 fL (80-94); Mean Platelet Volume 8.1 fL (7.4-10.4); Platelet Count 213 10^3/uL (150-450); Red Blood Count 4.07 10^6 /uL (4.18-5.48); Red Cell Distribution Width 13 % (10-15)
[2021-12-30 07:18] LABS: Albumin 3.7 g/dL (3.2-5.2); C Reactive Protein 10.85 mg/L (<8.01); Calcium 8.9 mg/dL (8.6-10.3); Globulin 3.8 g/dL (2-4); Potassium 4.1 mmol/L (3.5-5.0); Total Bilirubin 0.5 mg/dL (0.2-1.0); Total Protein 7.5 g/dL (6.4-8.9); eGFR CKD-EPI 76.5 (>60)
[2021-12-30] MEDS ORDERED: Azithromycin 500 mg/250 ml NS 500 MG/250 ML BAG IVPB ONE (08:58)
[2021-12-30] MEDS ORDERED: cefTRIAXone 1 gm/50 mL D5W 1 GM/50 ML BAG IV ONE (08:58)
[2021-12-30] MEDS ORDERED: Magnesium Hydroxide LIQ 30 ML UDC PO PRN (11:47)
[2021-12-30] MEDS: Enoxaparin 40 MG/0.4 ML SYR SUBCUT SCH (20:15)
[2021-12-30 20:29] LABS: Urine Appearance Clear; Urine Bilirubin Negative (Negative); Urine Blood 1+ (Negative); Urine Color Straw; Urine Glucose Negative (Negative); Urine Ketones Negative (Negative); Urine Nitrite Negative (Negative); Urine Protein Negative (Negative); Urine Specific Gravity 1.006 (1.002-1.030); Urine Urobilinogen Negative (Negative)
[2021-12-30 20:48] LABS: Urine Bacteria Absent (Absent); Urine Red Blood Cell Absent (Absent); Urine White Blood Cell Trace(0-5/hpf) (Absent)
[2021-12-31 05:54] LABS: ABS Lymphocytes 2.6 10^3/ul (1.0-4.8); ABS Monocytes 0.8 10^3/ul (0-0.8); ABS Neutrophils 14.3 10^3/ul (1.5-7.7); Eosinophil % 0.2 %; Hematocrit 35 % (42-52); Hemoglobin 11.3 g/dL (14.0-18.0); Lymphocyte % 14.5 %; Mean Corpuscular HGB Conc 33 g/dL (31-36); Mean Corpuscular Hemoglobin 29 pg (27-31); Mean Corpuscular Volume 87 fL (80-94); Mean Platelet Volume 8.3 fL (7.4-10.4); Platelet Count 201 10^3/uL (150-450); Red Blood Count 3.96 10^6 /uL (4.18-5.48); Red Cell Distribution Width 13 % (10-15); White Blood Count 17.7 10^3/uL (3.5-10.8)
[2021-12-31 06:08] LABS: Calcium 8.9 mg/dL (8.6-10.3); Potassium 4.1 mmol/L (3.5-5.0); eGFR CKD-EPI 91.7 (>60)
[2021-12-31] MEDS: cefTRIAXone 1 gm/50 mL D5W 1 GM/50 ML BAG IV SCH (08:44)
[2021-12-31] MEDS ORDERED: Iohexol 350 (CONTRAST) 500 ML MDV IV ONE (10:29)
[2021-12-31 11:26] LABS: Ferritin 176.8 ng/mL (24-336)
[2021-12-31] MEDS: Azithromycin 500 mg/250 ml NS 500 MG/250 ML BAG IVPB SCH (12:18)
[2021-12-31] MEDS: Enoxaparin 40 MG/0.4 ML SYR SUBCUT SCH (19:48)
[2022-01-01] MEDS: cefTRIAXone 1 gm/50 mL D5W 1 GM/50 ML BAG IV SCH (09:01)
[2022-01-01 11:13] LABS: Hematocrit 35 % (42-52); Hemoglobin 11.3 g/dL (14.0-18.0); Mean Corpuscular HGB Conc 33 g/dL (31-36); Mean Corpuscular Hemoglobin 28 pg (27-31); Mean Corpuscular Volume 87 fL (80-94); Mean Platelet Volume 7.8 fL (7.4-10.4); Platelet Count 210 10^3/uL (150-450); Red Blood Count 3.97 10^6 /uL (4.18-5.48); Red Cell Distribution Width 14 % (10-15); White Blood Count 12.3 10^3/uL (3.5-10.8)
[2022-01-01 11:25] VITALS: BP 104/56
[2022-01-01] MEDS: Azithromycin 500 mg/250 ml NS 500 MG/250 ML BAG IVPB SCH (12:07)
== END 2022-01-01 15:00 | disposition home or self-care (01) ==
LOC: EDHOLD 05:53 → ED 05:53 → SUATTDRO 11:47 → MEDTELE 12-31 00:20
PROVIDERS: ADMIT Student in an Organized Health Care Education/Training Program; ATTEND Internal Medicine

== ENCOUNTER 2024-02-21 06:51 | Observation (INO) ==
[2024-02-21 07:27] LABS: ABS Basophils 0.1 10^3/uL (0.0-0.1); ABS Eosinophils 0.1 10^3/uL (0.0-0.5); ABS Lymphocytes 1.6 10^3/uL (1.0-4.8); ABS Monocytes 0.9 10^3/uL (0.0-1.1); ABS Neutrophils 6.3 10^3/uL (1.5-7.6); Eosinophil % 1.6 %; Hematocrit 37.2 % (38-53); Hemoglobin 12.8 g/dL (13.2-16.3); Lymphocyte % 18.3 %; Mean Corpuscular Hemoglobin 30.1 pg (27-33); Mean Corpuscular Hgb Conc 34.5 g/dL (31-36); Mean Corpuscular Volume 87.3 fL (80-97); Mean Platelet Volume 7.9 fL (7.5-11.2); Platelet Count 224 10^3/uL (150-450); Red Blood Count 4.26 10^6/uL (4.06-5.63)
[2024-02-21] MEDS: Lactated Ringers 1000 ml BAG 1,000 ML IV ONE (07:52)
[2024-02-21 08:02] LABS: Albumin 3.8 g/dL (3.2-5.2); Albumin/Globulin Ratio 1.1 (1-3); Creatinine, Serum 0.94 mg/dL (0.67-1.17); Globulin 3.4 g/dL (2-4); Potassium 4.4 mmol/L (3.5-5.0); Total Bilirubin 0.5 mg/dL (0.2-1.0); Total Protein 7.2 g/dL (6.4-8.9); eGFR CKD-EPI 88.3 (>60)
[2024-02-21 08:46] LABS: TSH Ultra Thyroid Stim Horm 3.25 mcIU/mL (0.34-5.60)
[2024-02-21] MEDS: Lidocaine 1% w EPI 1:100,000 MDV 20 ML VIAL INJ ONE (08:57)
[2024-02-21] MEDS: Lidocaine 1% w EPI 1:100,000 MDV 50 ML VIAL INJ ONE (08:58)
[2024-02-21 09:10] LABS: High Sensitivity Troponin 1 Hr 3 pg/mL (<20)
[2024-02-21] MEDS: Tetan/Diph/Pertus SYR(Tdap) 0.5 ML SYR(BOOSTRIX) use SYR contains LATEX IM ONE (09:31)
[2024-02-21 09:48] LABS: Urine Appearance Clear; Urine Bilirubin Negative (Negative); Urine Blood Negative (Negative); Urine Color Light-Yellow; Urine Glucose Negative (Negative); Urine Ketones 1+ (Negative); Urine Nitrite Negative (Negative); Urine Protein Negative (Negative); Urine Urobilinogen Negative (Negative)
[2024-02-21] MEDS ORDERED: Sulfur Hexaflouride MICROSPHR 25 MG VIAL IV PRN (10:41)
[2024-02-21] MEDS: cefTRIAXone 2 gm/50 mL D5W 2 GM/50 ML BAG IV SCH (18:43)
[2024-02-21 18:54] LABS: C Reactive Protein 1.4 mg/L (<8.01)
[2024-02-21 20:23] LABS: Erythrocyte Sed Rate 107 mm/Hr (0-19)
[2024-02-21] MEDS: Enoxaparin 40 MG/0.4 ML SYR SUBCUT SCH (20:55)
[2024-02-22 04:59] LABS: ABS Basophils 0.1 10^3/uL (0.0-0.1); ABS Eosinophils 0.2 10^3/uL (0.0-0.5); ABS Lymphocytes 2.2 10^3/uL (1.0-4.8); ABS Monocytes 0.9 10^3/uL (0.0-1.1); ABS Neutrophils 5.1 10^3/uL (1.5-7.6); ABS Nucleated RBC 0.01 10^3/ul; Eosinophil % 1.8 %; Hematocrit 37.6 % (38-53); Hemoglobin 12.9 g/dL (13.2-16.3); Lymphocyte % 26.6 %; Mean Corpuscular Hemoglobin 29.9 pg (27-33); Mean Corpuscular Hgb Conc 34.2 g/dL (31-36); Mean Corpuscular Volume 87.4 fL (80-97); Mean Platelet Volume 8.1 fL (7.5-11.2); Nucleated Red Blood Cells % 0.1 %/100WBC (0.0-0.8); Platelet Count 220 10^3/uL (150-450); Red Cell Distribution Width 14.1 % (12-17); White Blood Count 8.5 10^3/uL (3.6-10.2)
[2024-02-22 05:39] LABS: Calcium 8.8 mg/dL (8.6-10.3); Creatinine, Serum 0.87 mg/dL (0.67-1.17); Magnesium 1.8 mg/dL (1.9-2.7); Potassium 4.1 mmol/L (3.5-5.0)
[2024-02-22] MEDS: Magnesium Sulfate 2 gm BAG 2 GM/50 ML BAG IVPB ONE (12:42)
[2024-02-23] MEDS ORDERED: Senna TAB 8.6 mg TAB PO PRN (05:52)
[2024-02-23 07:17] LABS: Hematocrit 36.7 % (38-53); Hemoglobin 12.5 g/dL (13.2-16.3); Mean Corpuscular Hemoglobin 29.9 pg (27-33); Mean Corpuscular Hgb Conc 34.1 g/dL (31-36); Mean Corpuscular Volume 87.7 fL (80-97); Mean Platelet Volume 8.1 fL (7.5-11.2); Platelet Count 231 10^3/uL (150-450); Red Blood Count 4.18 10^6/uL (4.06-5.63); Red Cell Distribution Width 14.1 % (12-17); White Blood Count 6.9 10^3/uL (3.6-10.2)
[2024-02-23] MEDS: Polyethylene Glycol 3350 17 GM PACKET PO SCH (07:26)
[2024-02-23 07:55] LABS: Calcium 8.8 mg/dL (8.6-10.3); Creatinine, Serum 0.94 mg/dL (0.67-1.17); Potassium 4.4 mmol/L (3.5-5.0); eGFR CKD-EPI 88.3 (>60)
[2024-02-23 10:07] VITALS: BP 119/68
[2024-02-25 16:07] LABS: Anaplasma phagocytophilum Negative (Negative); B. miyamotoi PCR, B Negative (Negative); Babesia divergens/MO-1 Negative (Negative); Babesia ducani Negative (Negative); Ehrlichia chaffeensis Negative (Negative); Ehrlichia ewingii/canis Negative (Negative); Ehrlichia muris eauclairensis Negative (Negative)
== END 2024-02-23 12:50 | disposition home or self-care (01) ==
LOC: ED 06:51 → EDHOLD 06:51 → SUATTDRO 10:34 → MEDTELE 12:21
PROVIDERS: ADMIT Internal Medicine; ATTEND Internal Medicine